=== PATIENT | female | born 1960 | race Caucasian/White ===

== ENCOUNTER → 2017-12-03 16:41 | Outpatient (CLI) | payer OTHER, SELFPAY ==
[2017-12-03 17:27] LABS: Add Manual Diff / Slide Review NO; Basophils Percent Auto 0.9 % (0-2); Eosinophils Percent Auto 0.8 % (2-4); Hemoglobin 12.4 g/dL (12.0-16.0); Lymphocytes Percent Auto 27.1 % (25-40); Mean Corpuscular HGB Conc 33.5 % (30-36); Mean Corpuscular Hemoglobin 30.2 PG (26-34); Mean Corpuscular Volume 90.2 fL (80-100); Monocytes Percent Auto 6.2 % (3-14); Neutrophils Absolute Auto 5300 /uL (3000-5900); Platelet Count 345 X10^3/uL (150-400); Red Cell Distribution Width 14.5 % (11.6-14.8); White Blood Cell Count 8.1 X10^3/uL (4.5-11.0)
[2017-12-03 17:49] LABS: Alanine Aminotransferase 23 IU/L (9-52); Albumin 4.5 g/dL (3.5-5.0); Albumin Globulin Ratio 1.4 (1.0-2.8); Alkaline Phosphatase 68 U/L (38-126); Aspartate Aminotransferase 18 IU/L (14-36); BUN Creatinine Ratio 31.7 (6-22); Bilirubin Total 0.4 mg/dL (0.2-1.3); Blood Urea Nitrogen 19 mg/dL (7-17); C-Reactive Protein Quant 2.1 mg/dL (<1.0); Calcium 9.8 mg/dL (8.4-10.2); Carbon Dioxide 24 mmol/L (22-32); Chloride 98 mmol/L (98-107); Cholesterol 194 mg/dL (140-199); Estimated Glomerular Filt Rate > 60.0 mL/min (>60); Globulin 3.2 g/dL (1.7-4.1); Glucose 88 mg/dL (70-100); HDL Cholesterol 70 mg/dL (40-60); HEMOLYSIS < 15 (0-50); LDL Cholesterol Calculated 107 mg/dL (<100); Potassium 4.7 mmol/L (3.4-5.1); Sodium 137 mmol/L (137-145); Total Protein 7.7 g/dL (6.3-8.2); Triglycerides 84 mg/dL (35-150)
[2017-12-03 17:51] LABS: Rheumatoid Factor < 8.6 IU/mL (<12.0)
[2017-12-03 18:01] LABS: Erythrocyte Sedimentation Rate 45 MM/HR (0-20)
[2017-12-03 18:18] LABS: TSH w/ Reflex to FT4 6.96 uIU/mL (0.47-4.68)
[2017-12-03 20:47] LABS: Free T4, Direct Thyroxine 1.25 ng/dL (0.78-2.19)
[2017-12-05 20:42] LABS: ANA Screen NEGATIVE (Negative); DNA Antibody Crithidia IFA NEGATIVE (Negative); Rheumatoid Factor <14 IU/mL; Sjogren Antiboday SS-A <1.0 NEG AI (<1.0 NEGATIVE); Sjogren Antiboday SS-B <1.0 NEG AI (<1.0 NEGATIVE); Sm Antibody <1.0 NEG AI (<1.0 NEGATIVE); Sm/RNP Antibody <1.0 NEG AI (<1.0 NEGATIVE)
[2017-12-06 12:03] LABS: CCP Antibody (IgG) < 16 Units (< 20)
== END ==
PROVIDERS: Family Provider Family Medicine; PCP Family Medicine; Visit Provider Family Medicine
DX: M35.3 Polymyalgia rheumatica (principal)
CPT/HCPCS: 36415; 80053; 80061; 83516; 84439; 84443; 85025; 85651; 86038; 86140; 86430

== ENCOUNTER → 2018-12-03 09:11 | Outpatient (CLI) | payer OTHER, SELFPAY ==
[2018-12-03 10:25] LABS: TSH w/ Reflex to FT4 5.86 uIU/mL (0.47-4.68)
[2018-12-03 10:52] LABS: Free T4, Direct Thyroxine 1.07 ng/dL (0.78-2.19)
== END ==
PROVIDERS: PCP Family Medicine; Visit Provider Family Medicine
DX: E03.9 Hypothyroidism, unspecified (principal)
CPT/HCPCS: 36415; 84439; 84443

== ENCOUNTER → 2021-04-28 09:59 | Outpatient (CLI) | payer OTHER, SELFPAY ==
[2021-04-28 11:02] LABS: Add Manual Diff / Slide Review NO; Basophils Absolute Auto 0 /uL (0-100); Basophils Percent Auto 0.5 % (0-2); Eosinophils Absolute Auto 100 /uL (0-450); Eosinophils Percent Auto 1.8 % (2-4); Hemoglobin 13.2 g/dL (12.0-16.0); Lymphocytes Absolute Auto 1500 /uL (1100-4500); Lymphocytes Percent Auto 27.7 % (25-40); Mean Corpuscular HGB Conc 33.9 % (30-36); Mean Corpuscular Hemoglobin 30.5 PG (26-34); Monocytes Absolute Auto 400 /uL (0-900); Monocytes Percent Auto 7.5 % (3-14); Neutrophils Absolute Auto 3500 /uL (1500-7000); Neutrophils Percent Auto 62.5 % (50-75); Platelet Count 267 X10^3/uL (150-400); Red Blood Cell Count 4.34 X10^6/uL (4.0-5.2); White Blood Cell Count 5.5 X10^3/uL (4.5-11.0)
[2021-04-28 11:26] LABS: Alanine Aminotransferase 21 IU/L (<35); Albumin 4.2 g/dL (3.5-5.0); Albumin Globulin Ratio 1.4 (1.0-2.8); Alkaline Phosphatase 76 U/L (38-126); Aspartate Aminotransferase 25 IU/L (14-36); BUN Creatinine Ratio 26.9 (6-22); Bilirubin Total 0.5 mg/dL (0.2-1.3); Blood Urea Nitrogen 18 mg/dL (7-17); C-Reactive Protein Quant < 0.5 mg/dL (<1.0); Calcium 9.6 mg/dL (8.4-10.2); Carbon Dioxide 27 mmol/L (22-32); Chloride 104 mmol/L (98-107); Estimated Glomerular Filt Rate > 60.0 mL/min (>60); Glucose 99 mg/dL (80-110); HEMOLYSIS < 15 (0-50); Potassium 4.4 mmol/L (3.4-5.1); Sodium 139 mmol/L (137-145); Total Protein 7.2 g/dL (6.3-8.2)
[2021-04-28 11:54] LABS: Erythrocyte Sedimentation Rate 13 MM/HR (0-20)
[2021-04-28 11:55] LABS: TSH w/ Reflex to FT4 2.84 uIU/mL (0.47-4.68)
== END ==
PROVIDERS: PCP Family Medicine; Referring Provider Physician Assistant; Visit Provider Physician Assistant
DX: M35.3 Polymyalgia rheumatica (principal); R79.89 Other specified abnormal findings of blood chemistry; M62.81 Muscle weakness (generalized)
CPT/HCPCS: 36415; 80053; 84443; 85025; 85651; 86140

== ENCOUNTER 2021-12-12 11:00 | Outpatient (RCR) | payer OTHER, SELFPAY ==
--- NOTE | 2021-10-06 18:11 | PT.OIE ---
Current Diagnoses Muscle weakness (generalized) (10/06/21) Other malaise (10/06/21) Visit Care Team Role Provider Type Soren Dickens MD Family Provider Physician Primary Care Provider Referring Provider Specialty: Family Practice Address: [address] [place] [address], [id number] Email: [email or web address] Suze Grimaldo PA-C Attending Provider Advanced Regional Service Manager Specialty: Medical Address: [address], [address] Email: [email or web address] Physical Therapy Initial Evaluation PT-OP-A Visit Information Start: 10/04/21 08:01 Freq: Status: Active Protocol: Document 10/06/21 09:45 SAK (Rec: 10/06/21 10:29 SAK [id number]) Out-Patient Physical Therapy Visit Information Visit Information Visit Type Initial Evaluation Visit Start Time 09:45 Visit Stop Time 10:25 Total Visit Minutes 40 Visit Number 1 Evaluation Information Evaluation Date 10/06/21 PT-OP-B Current Condition Start: 10/04/21 08:01 Freq: Status: Active Protocol: Document 10/06/21 09:45 SAK (Rec: 10/06/21 10:29 SAK [id number]) Current Condition History of Current Condition Onset Date 2011 Current Complaints weakness and pain History of Current Condition History of polymyalgia rheumatica, has been on/off Prednisone for 10+ years. Recent worseining bilateral shoulders and upper arms and states that is usually the beginning of a major flare up. Not a good candidate for Prednisone because of side effects doesn't want to take anymore. Sees a GP, has never seen a manager club. Prior aquatic PT for left TKA. Hasn't been able to go to the pool due to Covid and [place] in 4 story home to go through on and off for 1 year. and reports weight gain and increase in pain. 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 Has fallen a couple times feel on tailbone. right knee pain, catches Prior Treatments and Tests Prednisone Land-based PT from Ayesha Smith, PT. Dietary changes Future Testing and Treatments Planned Consider manager club Prior Functional Status Baseline Function- ADL's Independent Baseline Function- Mobility Independent Baseline Function- Gait independent with minimal pain Baseline Function- Work/School unable due to pain Personal Factors Other Personal Factors That May Effect uncertain nature of disease Therapy/Recovery process PT-OP-C Subjective Start: 10/04/21 08:01 Freq: Status: Active Protocol: Document 10/06/21 09:45 SAK (Rec: 10/06/21 18:08 [facility] [id number]) OP-PT Pain Assessment Pain Assessment Grid Paper Pain Assessment Grid Completed Yes Location kailash upper arms, kailash hands, kailash thighs, kailash knees Intensity 8 Scale Used Numeric (0 - 10) Frequency Frequent Pain Behaviors Pain Behaviors Guarding,Wincing PT-OP-G Mobility & Gait Start: 10/04/21 08:01 Freq: Status: Active Protocol: Document 10/06/21 09:45 SAK (Rec: 10/06/21 18:08 [facility] [id number]) OP Gait Assessment Gait Gait Assistance Required: Independent Assistive Devices Assistive Device None Gait Deviations General Gait Pattern Antalgic PT-OP-K Range of Motion Start: 10/04/21 08:01 Freq: Status: Active Protocol: Document 10/06/21 09:45 SAK (Rec: 10/06/21 18:08 [facility] [id number]) Shoulder Goniometric Range of Motion Shoulder kailash Shoulder ROM WFL Yes Shoulder ROM Limitations Shoulder ROM Limitations Pain Comments WFL but painful Hip Goniometric Range of Motion Hip kailash Testing Position Supine Flexion w/Knee Flexed 110 Straight Leg Raise 70 Extension 0 Abduction 25 Internal Rotation 10 External Rotation 45 Knee Goniometric Range of Motion Knee kailash Knee ROM WFL Yes Knee ROM Limitations Comments WFL but painful PT-OP-M Strength Start: 10/04/21 08:01 Freq: Status: Active Protocol: Document 10/06/21 09:45 SAK (Rec: 10/06/21 18:08 [facility] [id number]) Shoulder Strength Shoulder Manual Muscle Testing kailash Flexion 3+ Fair+ Extension 3+ Fair+ Abduction (C5) 3+ Fair+ Adduction 3+ Fair+ External Rotation 3+ Fair+ Internal Rotation 3+ Fair+ Comments limited by pain Elbow/Forearm Strength Elbow and Forearm Manual Muscle Testing kailash Flexion (C6) 4 Good Extension (C7) 4 Good Comments painful Hip Strength Hip Manual Muscle Testing kailash Flexion (L2) 3+ Fair+ Extension (S1) 3- Fair- Abduction 3+ Fair+ External Rotation 3+ Fair+ Internal Rotation 3+ Fair+ Comments painful Knee Strength Knee Manual Muscle Testing kailash Flexion (S2) 4 Good Extension (L3) 4 Good Comments painful PT-OP-Q Treatments Start: 10/04/21 08:01 Freq: Status: Active Protocol: Document 10/06/21 09:45 [facility] (Rec: 10/06/21 18:08 [facility] [id number]) Self-Care/Home Management Treatment Education Patient Education Home Exercise Program Other Education written HEP issued for TrA activation, gluteal sets, bridging, sit to stand PT-OP-T Assessment and Plan Start: 10/04/21 08:01 Freq: Status: Active Protocol: Document 10/06/21 09:45 [facility] (Rec: 10/06/21 18:08 [facility] [id number]) Physical Therapy Assessment Rehab Potential Rehabilitation Potential Good Evaluation Complexity Number of Personal Factors/Comorbidities 1-2 Number of Body Systems Impaired 3 Clinical Presentation at Evaluation Evolving Impairments Impairments Activity Tolerance,Pain, Strength Goals Two Impairment pain bilateral UE's and LE's with decreased functional strength Impairment patient unable to reach overhead due to bilateral shoulder pain requires use of UE's to move from sit to stand Short Term Goal (STG) Patient to report 25% reduction in pain with usual functional activities STG Duration 11/06/21 [facility] Goal (LTG) Patient will be able to move from sit to stand without requiring use of hands Patient will be able to reach overhead to wash hair and reach objects in cupboards with reported 50% decrease in pain LTG Duration 12/05/21 One Impairment Not able to tolerate exercise progarm Short Term Goal (STG) instruct in progressive aquatic exericse program STG Duration 11/06/21 House Manager Goal (LTG) Patient to be independent and compliant with aquatic exercise program for the purposes of shelter fitness and pain management LTG Duration 12/05/21 Assessment Summary Assessment Patient presents to PT with function-limiting pain throughout her UE's and LE's related largely to diagnosis of polymyalgia rheumatica which is unpredictable in nature but has resulted in progressive decline in patient activity level, strength, and tolerance for activities in the home. Feel she will benefit the most from aquatic therapy for buoyancy supported therapeutic exercises for long-term fitness and pain management. Physical Therapy Plan Frequency and Duration Frequency of Treatment 2x/Week Duration of Treatment 8 weeks Plan of Care Start Date 10/06/21 Plan of Care End Date 12/05/21 Therapeutic Interventions Therapeutic Interventions Aquatic Therapy,Home Exercise Program,Patient/Caregiver Education,Self-Care/Home Management Next Visit Focus/Plan Next Note Type Treatment Note Next Visit Plan Initiate aquatic therapy to address above goals.
--- NOTE | 2021-10-06 18:12 | PT.OPPOC ---
Physical, Occupational & Speech Therapy At [facility] Current Diagnoses Muscle weakness (generalized) (10/06/21) Other malaise (10/06/21) Visit Care Team Role Provider Type Soren Dickens MD Family Provider Physician Primary Care Provider Referring Provider Specialty: Family Practice Address: [address] [place] [address], [address] Email: [email or web address] Suze Grimaldo PA-C Attending Provider Advanced Edge Gluer Specialty: Medical Address: [facility], [address] [place], [address] Email: [email or web address] Plan Of Care PT-OP-T Assessment and Plan Start: 10/04/21 08:01 Freq: Status: Active Protocol: Document 10/06/21 09:45 LISA (Rec: 10/06/21 18:08 [facility] [id number]) Physical Therapy Assessment Rehab Potential Rehabilitation Potential Good Evaluation Complexity Number of Personal Factors/Comorbidities 1-2 Number of Body Systems Impaired 3 Clinical Presentation at Evaluation Evolving Impairments Impairments Activity Tolerance,Pain, Strength Goals Two Impairment pain bilateral UE's and LE's with decreased functional strength Impairment patient unable to reach overhead due to bilateral shoulder pain requires use of UE's to move from sit to stand Short Term Goal (STG) Patient to report 25% reduction in pain with usual functional activities STG Duration 11/06/21 [employer] Installer Goal (LTG) Patient will be able to move from sit to stand without requiring use of hands Patient will be able to reach overhead to wash hair and reach objects in cupboards with reported 50% decrease in pain LTG Duration 12/05/21 One Impairment Not able to tolerate exercise progarm Short Term Goal (STG) instruct in progressive aquatic exericse program STG Duration 11/06/21 [employer] Installer Goal (LTG) Patient to be independent and compliant with aquatic exercise program for the purposes of jail fitness and pain management LTG Duration 12/05/21 Assessment Summary Assessment Patient presents to PT with function-limiting pain throughout her UE's and LE's related largely to diagnosis of polymyalgia rheumatica which is unpredictable in nature but has resulted in progressive decline in patient activity level, strength, and tolerance for activities in the home. Feel she will benefit the most from aquatic therapy for buoyancy supported therapeutic exercises for long-term fitness and pain management. Physical Therapy Plan Frequency and Duration Frequency of Treatment 2x/Week Duration of Treatment 8 weeks Plan of Care Start Date 10/06/21 Plan of Care End Date 12/05/21 Therapeutic Interventions Therapeutic Interventions Aquatic Therapy,Home Exercise Program,Patient/Caregiver Education,Self-Care/Home Management Next Visit Focus/Plan Next Note Type Treatment Note Next Visit Plan Initiate aquatic therapy to address above goals. Plan of Care Dates Plan of Care Start Date 10/06/21 Plan of Care End Date 12/05/21 Electronically Signed by: Sarah Nelson, PT 10/06/21 [id number] If you are in agreement with this Plan of Care, please return a signed and dated copy. I have reviewed this Plan of Care and certify that the skilled therapy services above are required to meet the patient?s needs. Physician Signature Date Printed Name and Credentials Clinical Instructor Signature Printed Name and Credentials
--- NOTE | 2021-10-19 17:37 | PT.OTN ---
Current Diagnoses Muscle weakness (generalized) (10/19/21) Other malaise (10/19/21) Physical Therapy Treatment Note PT-OP-A Visit Information Start: 10/04/21 08:01 Freq: Status: Active Protocol: Document 10/19/21 17:31 SAK (Rec: 10/19/21 17:37 [facility] [id number]) Out-Patient Physical Therapy Visit Information Visit Information Visit Type Aquatic Treatment Note Visit Start Time 10:15 Visit Stop Time 11:00 Total Visit Minutes 45 Visit Number 2 Evaluation Information Evaluation Date 10/06/21 PT-OP-B Current Condition Start: 10/04/21 08:01 Freq: Status: Active Protocol: Document 10/19/21 17:31 SAK (Rec: 10/19/21 17:37 [facility] [id number]) Current Condition History of Current Condition Onset Date 2011 Current Complaints weakness and pain History of Current Condition History of polymyalgia rheumatica, has been on/off Prednisone for 10+ years. Recent worseining bilateral shoulders and upper arms and states that is usually the beginning of a major flare up. Not a good candidate for Prednisone because of side effects doesn't want to take anymore. Sees a GP, has never seen a rib cloth knitter. Prior aquatic PT for left TKA. Hasn't been able to go to the pool due to Covid and [place] in 4 story home to go through on and off for 1 year. and reports weight gain and increase in pain. 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 Has fallen a couple times feel on tailbone. right knee pain, catches Prior Treatments and Tests Prednisone Land-based PT from Ayesha Smith PT. Dietary changes Future Testing and Treatments Planned Consider rib cloth knitter PT-OP-C Subjective Start: 10/04/21 08:01 Freq: Status: Active Protocol: Document 10/19/21 17:31 SAK (Rec: 10/19/21 17:37 [facility] [id number]) OP-PT Subjective Patient Comments Patient Comments Excited to get back to aquatic exercises after losing so much physical ground PT-OP-G Mobility & Gait Start: 10/04/21 08:01 Freq: Status: Active Protocol: Document 10/06/21 09:45 SAK (Rec: 10/06/21 18:08 [facility] [id number]) OP Gait Assessment Gait Gait Assistance Required: Independent Assistive Devices Assistive Device None Gait Deviations General Gait Pattern Antalgic PT-OP-K Range of Motion Start: 10/04/21 08:01 Freq: Status: Active Protocol: Document 10/06/21 09:45 [facility] (Rec: 10/06/21 18:08 [facility] [id number]) Shoulder Goniometric Range of Motion Shoulder kailash Shoulder ROM WFL Yes Shoulder ROM Limitations Shoulder ROM Limitations Pain Comments WFL but painful Hip Goniometric Range of Motion Hip kailash Testing Position Supine Flexion w/Knee Flexed 110 Straight Leg Raise 70 Extension 0 Abduction 25 Internal Rotation 10 External Rotation 45 Knee Goniometric Range of Motion Knee kailash Knee ROM WFL Yes Knee ROM Limitations Comments WFL but painful PT-OP-M Strength Start: 10/04/21 08:01 Freq: Status: Active Protocol: Document 10/06/21 09:45 [facility] (Rec: 10/06/21 18:08 [facility] [id number]) Shoulder Strength Shoulder Manual Muscle Testing kailash Flexion 3+ Fair+ Extension 3+ Fair+ Abduction (C5) 3+ Fair+ Adduction 3+ Fair+ External Rotation 3+ Fair+ Internal Rotation 3+ Fair+ Comments limited by pain Elbow/Forearm Strength Elbow and Forearm Manual Muscle Testing kailash Flexion (C6) 4 Good Extension (C7) 4 Good Comments painful Hip Strength Hip Manual Muscle Testing kailash Flexion (L2) 3+ Fair+ Extension (S1) 3- Fair- Abduction 3+ Fair+ External Rotation 3+ Fair+ Internal Rotation 3+ Fair+ Comments painful Knee Strength Knee Manual Muscle Testing kailash Flexion (S2) 4 Good Extension (L3) 4 Good Comments painful PT-OP-Q Treatments Start: 10/04/21 08:01 Freq: Status: Active Protocol: Document 10/06/21 09:45 [facility] (Rec: 10/06/21 18:08 [facility] [id number]) Self-Care/Home Management Treatment Education Patient Education Home Exercise Program Other Education written HEP issued for TrA activation, gluteal sets, bridging, sit to stand PT-OP-S Aquatic Treatment Start: 10/04/21 08:01 Freq: Status: Active Protocol: Document 10/19/21 17:31 [facility] (Rec: 10/19/21 17:37 [facility] [id number]) Aquatics Treatment Pool Entry/Exit Pool Entry/Exit Method Stairs Assistance Independent Water Walking Marching Water Level Chest Level Level of Assistance Verbal Cues Sideways Water Level Chest Level Level of Assistance Verbal Cues Backwards Water Level Chest Level Level of Assistance Verbal Cues Forwards Water Level Chest Level Level of Assistance Verbal Cues Lower Extremity Exercises knee flex/ext Body Position Standing Water Level Chest Level Reps/Duration 10x circles Body Position Standing Water Level Chest Level Reps/Duration 10x 4-way hip Body Position Standing Water Level Chest Level Reps/Duration 10x Upper Extremity Exercises writst flexor stretch Body Position Standing Water Level Chest Level Reps/Duration 2x30 bicep/tricep Body Position Standing Water Level Chest Level Reps/Duration 10x Comments open hand circles Body Position Standing Water Level Chest Level Reps/Duration 10x flex/ext Water Level Chest Level Reps/Duration 10x hor ab/ad Body Position Standing Water Level Chest Level Reps/Duration 10x [place] Activities [place] Activities Bicycle,Cross Country,Running Other Activities deep water hang spiderman stretch SKTC Equipment wall Aquatic Yoga Other explore movement Chi Comments consider next session PT-OP-T Assessment and Plan Start: 10/04/21 08:01 Freq: Status: Active Protocol: Document 10/19/21 17:31 [facility] (Rec: 10/19/21 17:37 [facility] [id number]) Physical Therapy Assessment Goals Two Impairment pain bilateral UE's and LE's with decreased functional strength Impairment patient unable to reach overhead due to bilateral shoulder pain requires use of UE's to move from sit to stand Short Term Goal (STG) Patient to report 25% reduction in pain with usual functional activities STG Duration 11/06/21 [facility] Goal (LTG) Patient will be able to move from sit to stand without requiring use of hands Patient will be able to reach overhead to wash hair and reach objects in cupboards with reported 50% decrease in pain LTG Duration 12/05/21 One Impairment Not able to tolerate exercise progarm Short Term Goal (STG) instruct in progressive aquatic exericse program STG Duration 11/06/21 [facility]iary Goal (LTG) Patient to be independent and compliant with aquatic exercise program for the purposes of long term care social worker fitness and pain management LTG Duration 12/05/21 Physical Therapy Plan Frequency and Duration Frequency of Treatment 2x/Week Duration of Treatment 8 weeks Plan of Care Start Date 10/06/21 Plan of Care End Date 12/05/21 Therapeutic Interventions Therapeutic Interventions Aquatic Therapy,Home Exercise Program,Patient/Caregiver Education,Self-Care/Home Management Next Visit Focus/Plan Next Note Type Treatment Note Next Visit Plan Assess response to aquatic therapy session and progress as tolerated for gentle strengthening and pain managment.
--- NOTE | 2021-10-26 14:34 | PT.OTN ---
Current Diagnoses Muscle weakness (generalized) (10/26/21) Other malaise (10/26/21) Physical Therapy Treatment Note PT-OP-A Visit Information Start: 10/04/21 08:01 Freq: Status: Active Protocol: Document 10/26/21 14:22 LYNDA (Rec: 10/26/21 14:34 LJ [id number]) Out-Patient Physical Therapy Visit Information Visit Information Visit Type Aquatic Treatment Note Visit Start Time 10:15 Visit Stop Time 11:00 Total Visit Minutes 45 Visit Number 3 Number of BROOM MAKER Visits 1 Evaluation Information Evaluation Date 10/06/21 PT-OP-B Current Condition Start: 10/04/21 08:01 Freq: Status: Active Protocol: Document 10/19/21 17:31 SAK (Rec: 10/19/21 17:37 SAK [id number]) Current Condition History of Current Condition Onset Date 2011 Current Complaints weakness and pain History of Current Condition History of polymyalgia rheumatica, has been on/off Prednisone for 10+ years. Recent worseining bilateral shoulders and upper arms and states that is usually the beginning of a major flare up. Not a good candidate for Prednisone because of side effects doesn't want to take anymore. Sees a GP, has never seen a quantitative researcher. Prior aquatic PT for left TKA. Hasn't been able to go to the pool due to Covid and family [place] in 4 story home to go through on and off for 1 year. and reports weight gain and increase in pain. 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 Has fallen a couple times feel on tailbone. right knee pain, catches Prior Treatments and Tests Prednisone Land-based PT from Ayesha Smith, PT. Dietary changes Future Testing and Treatments Planned Consider quantitative researcher PT-OP-C Subjective Start: 10/04/21 08:01 Freq: Status: Active Protocol: Document 10/26/21 14:22 LYNDA (Rec: 10/26/21 14:34 LJ [id number]) OP-PT Subjective Patient Comments Patient Comments Pt reports she has been able to exercise at the pool several times this week. PT-OP-G Mobility & Gait Start: 10/04/21 08:01 Freq: Status: Active Protocol: Document 10/06/21 09:45 SAK (Rec: 10/06/21 18:08 SAK [id number]) OP Gait Assessment Gait Gait Assistance Required: Independent Assistive Devices Assistive Device None Gait Deviations General Gait Pattern Antalgic PT-OP-K Range of Motion Start: 10/04/21 08:01 Freq: Status: Active Protocol: Document 10/06/21 09:45 [facility] (Rec: 10/06/21 18:08 [facility] [id number]) Shoulder Goniometric Range of Motion Shoulder kailash Shoulder ROM WFL Yes Shoulder ROM Limitations Shoulder ROM Limitations Pain Comments WFL but painful Hip Goniometric Range of Motion Hip kailash Testing Position Supine Flexion w/Knee Flexed 110 Straight Leg Raise 70 Extension 0 Abduction 25 Internal Rotation 10 External Rotation 45 Knee Goniometric Range of Motion Knee kailash Knee ROM WFL Yes Knee ROM Limitations Comments WFL but painful PT-OP-M Strength Start: 10/04/21 08:01 Freq: Status: Active Protocol: Document 10/06/21 09:45 [facility] (Rec: 10/06/21 18:08 [facility] [id number]) Shoulder Strength Shoulder Manual Muscle Testing kailash Flexion 3+ Fair+ Extension 3+ Fair+ Abduction (C5) 3+ Fair+ Adduction 3+ Fair+ External Rotation 3+ Fair+ Internal Rotation 3+ Fair+ Comments limited by pain Elbow/Forearm Strength Elbow and Forearm Manual Muscle Testing kailash Flexion (C6) 4 Good Extension (C7) 4 Good Comments painful Hip Strength Hip Manual Muscle Testing kailash Flexion (L2) 3+ Fair+ Extension (S1) 3- Fair- Abduction 3+ Fair+ External Rotation 3+ Fair+ Internal Rotation 3+ Fair+ Comments painful Knee Strength Knee Manual Muscle Testing kailash Flexion (S2) 4 Good Extension (L3) 4 Good Comments painful PT-OP-Q Treatments Start: 10/04/21 08:01 Freq: Status: Active Protocol: Document 10/06/21 09:45 [facility] (Rec: 10/06/21 18:08 [facility] [id number]) Self-Care/Home Management Treatment Education Patient Education Home Exercise Program Other Education written HEP issued for TrA activation, gluteal sets, bridging, sit to stand PT-OP-S Aquatic Treatment Start: 10/04/21 08:01 Freq: Status: Active Protocol: Document 10/26/21 14:22 LYNDA (Rec: 10/26/21 14:34 LJ [id number]) Aquatics Treatment Pool Entry/Exit Pool Entry/Exit Method Stairs Assistance Independent Water Walking Marching Water Level Chest Level Level of Assistance Verbal Cues Sideways Water Level Chest Level Level of Assistance Verbal Cues Backwards Water Level Chest Level Level of Assistance Verbal Cues Forwards Water Level Chest Level Level of Assistance Verbal Cues Lower Extremity Exercises hip extension Body Position Standing Equipment Ankle Floats Reps/Duration 10x knee flex/ext Body Position Standing Water Level Chest Level Equipment Ankle Floats Reps/Duration 10x circles Body Position Standing Water Level Chest Level Reps/Duration 10x 4-way hip Body Position Standing Water Level Chest Level Reps/Duration 10x Upper Extremity Exercises writst flexor stretch Body Position Standing Water Level Chest Level Reps/Duration 2x30 bicep/tricep Body Position Standing Water Level Chest Level Reps/Duration 10x Comments open hand circles Body Position Standing Water Level Chest Level Reps/Duration 10x flex/ext Water Level Chest Level Reps/Duration 10x hor ab/ad Body Position Standing Water Level Chest Level Reps/Duration 10x Spinal Exercises spinal rotation Details back against wall Body Position Sitting Water Level Neck Level Reps/Duration 10x UEs in scaption [place] Activities [place] Activities Bicycle,Bicycle Backwards, Cross Country,Running,Hip Abduction/Adduction Other Activities prone extension Equipment belt, BBs Aquatic Yoga Other explore movement Chi Comments 4 min w/o weight shifting PT-OP-T Assessment and Plan Start: 10/04/21 08:01 Freq: Status: Active Protocol: Document 10/26/21 14:22 LYNDA (Rec: 10/26/21 14:34 LYNDA [id number]) Physical Therapy Assessment Rehab Potential Rehabilitation Potential Good Evaluation Complexity Number of Personal Factors/Comorbidities 1-2 Number of Body Systems Impaired 3 Clinical Presentation at Evaluation Evolving Impairments Impairments Activity Tolerance,Pain, Strength Goals Two Impairment pain bilateral UE's and LE's with decreased functional strength Impairment patient unable to reach overhead due to bilateral shoulder pain requires use of UE's to move from sit to stand Short Term Goal (STG) Patient to report 25% reduction in pain with usual functional activities STG Duration 11/06/21 Machine Joint Cutter Goal (LTG) Patient will be able to move from sit to stand without requiring use of hands Patient will be able to reach overhead to wash hair and reach objects in cupboards with reported 50% decrease in pain LTG Duration 12/05/21 One Impairment Not able to tolerate exercise progarm Short Term Goal (STG) instruct in progressive aquatic exericse program STG Duration 11/06/21 Retirement Goal (LTG) Patient to be independent and compliant with aquatic exercise program for the purposes of home hospice rn fitness and pain management LTG Duration 12/05/21 Assessment Summary Assessment Pt tolerated exercises without c/o pain or fatigue. Was advised to keep exercises to a gentle level and gradually build up. She demonstrated good core control and balance during all activities with cues occasionally for vertical alignment in deep water. Physical Therapy Plan Frequency and Duration Frequency of Treatment 2x/Week Duration of Treatment 8 weeks Plan of Care Start Date 10/06/21 Plan of Care End Date 12/05/21 Therapeutic Interventions Therapeutic Interventions Aquatic Therapy,Home Exercise Program,Patient/Caregiver Education,Self-Care/Home Management Next Visit Focus/Plan Next Note Type Treatment Note Next Visit Plan Progress as tolerated for gentle strengthening and pain managment.
--- NOTE | 2021-11-02 16:21 | PT.OTN ---
Addendum entered and electronically signed by Sarah Nelson PT 11/08/21 16:17: Late entry for patient session 10/31/21. Original Note: Current Diagnoses Muscle weakness (generalized) (10/31/21) Other malaise (10/31/21) Physical Therapy Treatment Note PT-OP-A Visit Information Start: 10/04/21 08:01 Freq: Status: Active Protocol: Document 11/02/21 16:13 SAK (Rec: 11/02/21 16:21 [facility] [id number]) Out-Patient Physical Therapy Visit Information Visit Information Visit Type Aquatic Treatment Note Visit Start Time 12:30 Visit Stop Time 13:15 Total Visit Minutes 45 Visit Number 4 Number of OFFICE CLERK ASSISTANT Visits 0 Evaluation Information Evaluation Date 10/06/21 PT-OP-B Current Condition Start: 10/04/21 08:01 Freq: Status: Active Protocol: Document 10/19/21 17:31 SAK (Rec: 10/19/21 17:37 SAK [id number]) Current Condition History of Current Condition Onset Date 2011 Current Complaints weakness and pain History of Current Condition History of polymyalgia rheumatica, has been on/off Prednisone for 10+ years. Recent worseining bilateral shoulders and upper arms and states that is usually the beginning of a major flare up. Not a good candidate for Prednisone because of side effects doesn't want to take anymore. Sees a GP, has never seen a shipping inspector. Prior aquatic PT for left TKA. Hasn't been able to go to the pool due to Covid and family with being out [place] in 4 story home to go through on and off for 1 year. and reports weight gain and increase in pain. 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 Has fallen a couple times feel on tailbone. right knee pain, catches Prior Treatments and Tests Prednisone Land-based PT from Ayesha Smith, PT. Dietary changes Future Testing and Treatments Planned Consider shipping inspector PT-OP-C Subjective Start: 10/04/21 08:01 Freq: Status: Active Protocol: Document 11/02/21 16:13 SAK (Rec: 11/02/21 16:21 SAK [id number]) OP-PT Subjective Patient Comments Patient Comments Feeling some soreness but not increase in pain after aquatic exercises. PT-OP-G Mobility & Gait Start: 10/04/21 08:01 Freq: Status: Active Protocol: Document 10/06/21 09:45 [facility] (Rec: 10/06/21 18:08 [facility] [id number]) OP Gait Assessment Gait Gait Assistance Required: Independent Assistive Devices Assistive Device None Gait Deviations General Gait Pattern Antalgic PT-OP-K Range of Motion Start: 10/04/21 08:01 Freq: Status: Active Protocol: Document 10/06/21 09:45 [facility] (Rec: 10/06/21 18:08 [facility] [id number]) Shoulder Goniometric Range of Motion Shoulder kailash Shoulder ROM WFL Yes Shoulder ROM Limitations Shoulder ROM Limitations Pain Comments WFL but painful Hip Goniometric Range of Motion Hip kailash Testing Position Supine Flexion w/Knee Flexed 110 Straight Leg Raise 70 Extension 0 Abduction 25 Internal Rotation 10 External Rotation 45 Knee Goniometric Range of Motion Knee kailash Knee ROM WFL Yes Knee ROM Limitations Comments WFL but painful PT-OP-M Strength Start: 10/04/21 08:01 Freq: Status: Active Protocol: Document 10/06/21 09:45 [facility] (Rec: 10/06/21 18:08 [facility] [id number]) Shoulder Strength Shoulder Manual Muscle Testing kailash Flexion 3+ Fair+ Extension 3+ Fair+ Abduction (C5) 3+ Fair+ Adduction 3+ Fair+ External Rotation 3+ Fair+ Internal Rotation 3+ Fair+ Comments limited by pain Elbow/Forearm Strength Elbow and Forearm Manual Muscle Testing kailash Flexion (C6) 4 Good Extension (C7) 4 Good Comments painful Hip Strength Hip Manual Muscle Testing kailash Flexion (L2) 3+ Fair+ Extension (S1) 3- Fair- Abduction 3+ Fair+ External Rotation 3+ Fair+ Internal Rotation 3+ Fair+ Comments painful Knee Strength Knee Manual Muscle Testing kailash Flexion (S2) 4 Good Extension (L3) 4 Good Comments painful PT-OP-Q Treatments Start: 10/04/21 08:01 Freq: Status: Active Protocol: Document 10/06/21 09:45 [facility] (Rec: 10/06/21 18:08 [facility] [id number]) Self-Care/Home Management Treatment Education Patient Education Home Exercise Program Other Education written HEP issued for TrA activation, gluteal sets, bridging, sit to stand PT-OP-S Aquatic Treatment Start: 10/04/21 08:01 Freq: Status: Active Protocol: Document 11/02/21 16:13 [facility] (Rec: 11/02/21 16:21 [facility] [id number]) Aquatics Treatment Pool Entry/Exit Pool Entry/Exit Method Stairs Assistance Independent Water Walking Marching Water Level Chest Level Walking Equipment Ankle Floats Level of Assistance Verbal Cues Sideways Water Level Chest Level Walking Equipment Ankle Floats Level of Assistance Verbal Cues Backwards Water Level Chest Level Walking Equipment Ankle Floats Level of Assistance Verbal Cues Forwards Water Level Chest Level Walking Equipment Ankle Floats Level of Assistance Verbal Cues Lower Extremity Exercises hip extension Body Position Standing Equipment Ankle Floats Reps/Duration 10x knee flex/ext Body Position Standing Water Level Chest Level Equipment Ankle Floats Reps/Duration 10x circles Body Position Standing Water Level Chest Level Reps/Duration 10x 4-way hip Body Position Standing Water Level Chest Level Reps/Duration 10x Upper Extremity Exercises flex/ext Water Level Chest Level Reps/Duration 10x Comments cues fsor core stab hor ab/ad Details kailash and unil Body Position Standing Water Level Chest Level Reps/Duration 10x Comments cues for core stab [place] Activities [place] Activities Bicycle,Bicycle Backwards, Cross Country,Running,Hip Abduction/Adduction Other Activities prone extension Equipment belt, BBs PT-OP-T Assessment and Plan Start: 10/04/21 08:01 Freq: Status: Active Protocol: Document 11/02/21 16:13 [facility] (Rec: 11/02/21 16:21 [facility] [id number]) Physical Therapy Assessment Goals Two Impairment pain bilateral UE's and LE's with decreased functional strength Impairment patient unable to reach overhead due to bilateral shoulder pain requires use of UE's to move from sit to stand Short Term Goal (STG) Patient to report 25% reduction in pain with usual functional activities STG Duration 11/06/21 Product Marketing Manager Goal (LTG) Patient will be able to move from sit to stand without requiring use of hands Patient will be able to reach overhead to wash hair and reach objects in cupboards with reported 50% decrease in pain LTG Duration 12/05/21 One Impairment Not able to tolerate exercise progarm Short Term Goal (STG) instruct in progressive aquatic exericse program STG Duration 11/06/21 Residential Goal (LTG) Patient to be independent and compliant with aquatic exercise program for the purposes of [facility] fitness and pain management LTG Duration 12/05/21 Assessment Summary Assessment Good tolerance for progression of therapeutic aquatic exercises, cues for postural alignment and core stabiliztion. Physical Therapy Plan Frequency and Duration Frequency of Treatment 2x/Week Duration of Treatment 8 weeks Plan of Care Start Date 10/06/21 Plan of Care End Date 12/05/21 Therapeutic Interventions Therapeutic Interventions Aquatic Therapy,Home Exercise Program,Patient/Caregiver Education,Self-Care/Home Management Next Visit Focus/Plan Next Note Type Treatment Note Next Visit Plan Continue to rogress as tolerated for gentle strengthening and pain managment. Consider mild interval training.
--- NOTE | 2021-11-07 15:55 | PT.OTN ---
Current Diagnoses Muscle weakness (generalized) (11/07/21) Other malaise (11/07/21) Physical Therapy Treatment Note PT-OP-A Visit Information Start: 10/04/21 08:01 Freq: Status: Active Protocol: Document 11/07/21 15:07 LYNDA (Rec: 11/07/21 15:55 LJ [id number]) Out-Patient Physical Therapy Visit Information Visit Information Visit Type Aquatic Treatment Note Visit Start Time 12:45 Visit Stop Time 01:15 Total Visit Minutes 30 Visit Number 5 Number of RIFFLER TENDER Visits 1 Evaluation Information Evaluation Date 10/06/21 PT-OP-B Current Condition Start: 10/04/21 08:01 Freq: Status: Active Protocol: Document 10/19/21 17:31 SAK (Rec: 10/19/21 17:37 SAK [id number]) Current Condition History of Current Condition Onset Date 2011 Current Complaints weakness and pain History of Current Condition History of polymyalgia rheumatica, has been on/off Prednisone for 10+ years. Recent worseining bilateral shoulders and upper arms and states that is usually the beginning of a major flare up. Not a good candidate for Prednisone because of side effects doesn't want to take anymore. Sees a GP, has never seen a medical corps officer. Prior aquatic PT for left TKA. Hasn't been able to go to the pool due to Covid and family with being out [place] in [address] [place] home to go through on and off for 1 year. and reports weight gain and increase in pain. 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 Has fallen a couple times feel on tailbone. right knee pain, catches Prior Treatments and Tests Prednisone Land-based PT from Ayesha Smith, PT. Dietary changes Future Testing and Treatments Planned Consider medical corps officer PT-OP-C Subjective Start: 10/04/21 08:01 Freq: Status: Active Protocol: Document 11/07/21 15:07 LYNDA (Rec: 11/07/21 15:55 LYNDA [id number]) OP-PT Subjective Patient Comments Patient Comments Pt states she is experiencing a flare-up causing pain in her shoulders. She doesn't think she has been overdoing it when she exercises at the pool though. States it could possibly be the warm weather bringing causing it. PT-OP-G Mobility & Gait Start: 10/04/21 08:01 Freq: Status: Active Protocol: Document 10/06/21 09:45 SAK (Rec: 10/06/21 18:08 [facility] [id number]) OP Gait Assessment Gait Gait Assistance Required: Independent Assistive Devices Assistive Device None Gait Deviations General Gait Pattern Antalgic PT-OP-K Range of Motion Start: 10/04/21 08:01 Freq: Status: Active Protocol: Document 10/06/21 09:45 SAK (Rec: 10/06/21 18:08 [facility] [id number]) Shoulder Goniometric Range of Motion Shoulder kailash Shoulder ROM WFL Yes Shoulder ROM Limitations Shoulder ROM Limitations Pain Comments WFL but painful Hip Goniometric Range of Motion Hip kailash Testing Position Supine Flexion w/Knee Flexed 110 Straight Leg Raise 70 Extension 0 Abduction 25 Internal Rotation 10 External Rotation 45 Knee Goniometric Range of Motion Knee kailash Knee ROM WFL Yes Knee ROM Limitations Comments WFL but painful PT-OP-M Strength Start: 10/04/21 08:01 Freq: Status: Active Protocol: Document 10/06/21 09:45 [facility] (Rec: 10/06/21 18:08 [facility] [id number]) Shoulder Strength Shoulder Manual Muscle Testing kailash Flexion 3+ Fair+ Extension 3+ Fair+ Abduction (C5) 3+ Fair+ Adduction 3+ Fair+ External Rotation 3+ Fair+ Internal Rotation 3+ Fair+ Comments limited by pain Elbow/Forearm Strength Elbow and Forearm Manual Muscle Testing kailash Flexion (C6) 4 Good Extension (C7) 4 Good Comments painful Hip Strength Hip Manual Muscle Testing kailash Flexion (L2) 3+ Fair+ Extension (S1) 3- Fair- Abduction 3+ Fair+ External Rotation 3+ Fair+ Internal Rotation 3+ Fair+ Comments painful Knee Strength Knee Manual Muscle Testing kailash Flexion (S2) 4 Good Extension (L3) 4 Good Comments painful PT-OP-Q Treatments Start: 10/04/21 08:01 Freq: Status: Active Protocol: Document 10/06/21 09:45 SAK (Rec: 10/06/21 18:08 [facility] [id number]) Self-Care/Home Management Treatment Education Patient Education Home Exercise Program Other Education written HEP issued for TrA activation, gluteal sets, bridging, sit to stand PT-OP-S Aquatic Treatment Start: 10/04/21 08:01 Freq: Status: Active Protocol: Document 11/07/21 15:07 LYNDA (Rec: 11/07/21 15:55 LYNDA [id number]) Aquatics Treatment Pool Entry/Exit Pool Entry/Exit Method Stairs Assistance Independent Chi Chi Duration (Minutes) 15 Comments Including weight transfer movement, breath control and timing with movement of UEs, maintaining stable YVETTE and neutral spine with weight transfer in saggital plane Manual Techniques Aquatic Massage Gentle AquaStretch including foot, ankle, ITB releases PT-OP-T Assessment and Plan Start: 10/04/21 08:01 Freq: Status: Active Protocol: Document 11/07/21 15:07 LYNDA (Rec: 11/07/21 15:55 LYNDA [id number]) Physical Therapy Assessment Rehab Potential Rehabilitation Potential Good Evaluation Complexity Number of Personal Factors/Comorbidities 1-2 Number of Body Systems Impaired 3 Clinical Presentation at Evaluation Evolving Goals Two Impairment pain bilateral UE's and LE's with decreased functional strength Impairment patient unable to reach overhead due to bilateral shoulder pain requires use of UE's to move from sit to stand Short Term Goal (STG) Patient to report 25% reduction in pain with usual functional activities STG Duration 11/06/21 Long-Term Goal (LTG) Patient will be able to move from sit to stand without requiring use of hands Patient will be able to reach overhead to wash hair and reach objects in cupboards with reported 50% decrease in pain LTG Duration 12/05/21 One Impairment Not able to tolerate exercise progarm Short Term Goal (STG) instruct in progressive aquatic exericse program STG Duration 11/06/21 Long-Term Goal (LTG) Patient to be independent and compliant with aquatic exercise program for the purposes of [facility] fitness and pain management LTG Duration 12/05/21 Assessment Summary Assessment Pt experienced balance challenges with Chi particularly with weight shifting so instructed to maintain contact with the pool bottom with both LEs and focus on weight shifting with neutral spine rather than flexing spine and using UEs to bring body back to standing position from weight transfer to rear. Pt did not have any restrictions or trigger points with AquaStretch but stated it felt good. Physical Therapy Plan Frequency and Duration Frequency of Treatment 2x/Week Duration of Treatment 8 weeks Plan of Care Start Date 10/06/21 Plan of Care End Date 12/05/21 Therapeutic Interventions Therapeutic Interventions Aquatic Therapy,Home Exercise Program,Patient/Caregiver Education,Self-Care/Home Management Next Visit Focus/Plan Next Note Type Treatment Note Next Visit Plan Continue to progress as tolerated for gentle strengthening and pain managment. Consider mild interval training. Advance AquaStretch to include hip release as well as foot, ankle , ITB.
--- NOTE | 2021-11-30 14:41 | PT.OTN ---
Current Diagnoses Muscle weakness (generalized) (11/30/21) Other malaise (11/30/21) Physical Therapy Treatment Note PT-OP-A Visit Information Start: 10/04/21 08:01 Freq: Status: Active Protocol: Document 11/30/21 14:27 [facility] (Rec: 11/30/21 14:41 [facility] [id number]) Out-Patient Physical Therapy Visit Information Visit Information Visit Type Aquatic Treatment Note Visit Start Time 11:10 Visit Stop Time 12:05 Total Visit Minutes 45 Visit Number 6 Number of CANVAS CUTTER HAND Visits 0 PT-OP-B Current Condition Start: 10/04/21 08:01 Freq: Status: Active Protocol: Document 10/19/21 17:31 [facility] (Rec: 10/19/21 17:37 [facility] [id number]) Current Condition History of Current Condition Onset Date 2011 Current Complaints weakness and pain History of Current Condition History of polymyalgia rheumatica, has been on/off Prednisone for 10+ years. Recent worseining bilateral shoulders and upper arms and states that is usually the beginning of a major flare up. Not a good candidate for Prednisone because of side effects doesn't want to take anymore. Sees a GP, has never seen a parlor maid. Prior aquatic PT for left TKA. Hasn't been able to go to the pool due to Covid and [place] in 4 story home to go through on and off for 1 year. and reports weight gain and increase in pain. 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 Has fallen a couple times feel on tailbone. right knee pain, catches Prior Treatments and Tests Prednisone Land-based PT from Ayesha Smith, PT. Dietary changes Future Testing and Treatments Planned Consider parlor maid PT-OP-C Subjective Start: 10/04/21 08:01 Freq: Status: Active Protocol: Document 11/30/21 14:27 [facility] (Rec: 11/30/21 14:41 [facility] [id number]) OP-PT Subjective Patient Comments Patient Comments Has been coming to pool 6 days per week between PT and on own, taking one day of rest. Feels better for a few hours then pain has returned by evening. No difference with manual treatment last PT session. Stairs remain most difficult right knee and is unable to get E-bike started using right LE due to weakness and pain, and is unable to coordinate doing with left. Her family gifted her an E- bike but she is having difficulty managing it because of the weight and different function, fell last week. Sees orthopedist for her knee soon. PT-OP-G Mobility & Gait Start: 10/04/21 08:01 Freq: Status: Active Protocol: Document 10/06/21 09:45 [facility] (Rec: 10/06/21 18:08 [facility] [id number]) OP Gait Assessment Gait Gait Assistance Required: Independent Assistive Devices Assistive Device None Gait Deviations General Gait Pattern Antalgic PT-OP-K Range of Motion Start: 10/04/21 08:01 Freq: Status: Active Protocol: Document 10/06/21 09:45 [facility] (Rec: 10/06/21 18:08 [facility] [id number]) Shoulder Goniometric Range of Motion Shoulder kailash Shoulder ROM WFL Yes Shoulder ROM Limitations Shoulder ROM Limitations Pain Comments WFL but painful Hip Goniometric Range of Motion Hip kailash Testing Position Supine Flexion w/Knee Flexed 110 Straight Leg Raise 70 Extension 0 Abduction 25 Internal Rotation 10 External Rotation 45 Knee Goniometric Range of Motion Knee kailash Knee ROM WFL Yes Knee ROM Limitations Comments WFL but painful PT-OP-M Strength Start: 10/04/21 08:01 Freq: Status: Active Protocol: Document 10/06/21 09:45 [facility] (Rec: 10/06/21 18:08 [facility] [id number]) Shoulder Strength Shoulder Manual Muscle Testing kailash Flexion 3+ Fair+ Extension 3+ Fair+ Abduction (C5) 3+ Fair+ Adduction 3+ Fair+ External Rotation 3+ Fair+ Internal Rotation 3+ Fair+ Comments limited by pain Elbow/Forearm Strength Elbow and Forearm Manual Muscle Testing kailash Flexion (C6) 4 Good Extension (C7) 4 Good Comments painful Hip Strength Hip Manual Muscle Testing kailash Flexion (L2) 3+ Fair+ Extension (S1) 3- Fair- Abduction 3+ Fair+ External Rotation 3+ Fair+ Internal Rotation 3+ Fair+ Comments painful Knee Strength Knee Manual Muscle Testing kailash Flexion (S2) 4 Good Extension (L3) 4 Good Comments painful PT-OP-Q Treatments Start: 10/04/21 08:01 Freq: Status: Active Protocol: Document 10/06/21 09:45 [facility] (Rec: 10/06/21 18:08 [facility] [id number]) Self-Care/Home Management Treatment Education Patient Education Home Exercise Program Other Education written HEP issued for TrA activation, gluteal sets, bridging, sit to stand PT-OP-S Aquatic Treatment Start: 10/04/21 08:01 Freq: Status: Active Protocol: Document 11/30/21 14:27 [facility] (Rec: 11/30/21 14:41 [facility] [id number]) Aquatics Treatment Pool Entry/Exit Pool Entry/Exit Method Stairs Assistance Independent Water Walking step-ups Water Level Neck Level Walking Equipment 4 box Level of Assistance Verbal Cues Comments painful chest level [place] March Water Level Chest Level Walking Equipment Ankle Floats Level of Assistance Verbal Cues Marching Water Level Chest Level Walking Equipment Ankle Floats Level of Assistance Verbal Cues Sideways Water Level Chest Level Walking Equipment Ankle Floats Level of Assistance Verbal Cues Backwards Water Level Chest Level Walking Equipment Ankle Floats Level of Assistance Verbal Cues Forwards Water Level Chest Level Walking Equipment Ankle Floats Level of Assistance Verbal Cues Lower Extremity Exercises aquatic bicycle Body Position Sitting Reps/Duration 5 min Comments cues for alignment squats Body Position Standing Water Level Chest Level Reps/Duration 10x Comments cues for long spine, hip hinge hip extension Body Position Standing Equipment Ankle Floats Reps/Duration 10x knee flex/ext Body Position Standing Water Level Chest Level Equipment Ankle Floats Reps/Duration 10x circles Body Position Standing Water Level Chest Level Reps/Duration 10x 4-way hip Body Position Standing Water Level Chest Level Reps/Duration 10x Other bicycle problem solving Details discussed and demonstrated breaking down activities with e-bike Comments standing movement of bike, seated with support at side, etc PT-OP-T Assessment and Plan Start: 10/04/21 08:01 Freq: Status: Active Protocol: Document 11/30/21 14:27 [facility] (Rec: 11/30/21 14:41 [facility] [id number]) Physical Therapy Assessment Assessment Summary Assessment Patient continues to have pain in her right knee, has significant valgus and crepitus lateral knee and subpatellar. Stairs most painful even in water with buoyancy support and she is unable to use right LE to get E-bike started; instructed in breaking down activity into component parts and practicing with physical support. She demonstrated good understanding of exercises with ankle floats which she has ordered for more resistance. She has appointment to see orthopedist for her right knee and anticipate she may need TKA. Good tolerance for progression of ther ex with ankle floats and encouragement of increased speed for increased resistance. Physical Therapy Plan Frequency and Duration Frequency of Treatment 2x/Week Duration of Treatment 8 weeks Plan of Care Start Date 10/06/21 Plan of Care End Date 12/05/21 Therapeutic Interventions Therapeutic Interventions Aquatic Therapy,Home Exercise Program,Patient/Caregiver Education,Self-Care/Home Management Next Visit Focus/Plan Next Note Type Treatment Note Next Visit Plan Add interval training. Possible advance AquaStretch to include hip release as well as foot, ankle, ITB.
--- NOTE | 2021-12-05 11:00 | PT.OTN ---
Current Diagnoses Muscle weakness (generalized) (12/05/21) Other malaise (12/05/21) Physical Therapy Treatment Note PT-OP-A Visit Information Start: 10/04/21 08:01 Freq: Status: Active Protocol: Document 12/05/21 11:00 [facility] (Rec: 12/06/21 15:46 [facility] [id number]) Out-Patient Physical Therapy Visit Information Visit Information Visit Type Aquatic Treatment Note Visit Start Time 11:00 Visit Stop Time 11:45 Total Visit Minutes 45 Visit Number 7 PT-OP-B Current Condition Start: 10/04/21 08:01 Freq: Status: Active Protocol: Document 10/19/21 17:31 [facility] (Rec: 10/19/21 17:37 [facility] [id number]) Current Condition History of Current Condition Onset Date 2011 Current Complaints weakness and pain History of Current Condition History of polymyalgia rheumatica, has been on/off Prednisone for 10+ years. Recent worseining bilateral shoulders and upper arms and states that is usually the beginning of a major flare up. Not a good candidate for Prednisone because of side effects doesn't want to take anymore. Sees a GP, has never seen a asphalt spreader. Prior aquatic PT for left TKA. Hasn't been able to go to the pool due to Covid and family with being out east in 4 story home to go through on and off for 1 year. and reports weight gain and increase in pain. 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 Has fallen a couple times feel on tailbone. right knee pain, catches Prior Treatments and Tests Prednisone Land-based PT from Ayesha Smith, PT. Dietary changes Future Testing and Treatments Planned Consider asphalt spreader PT-OP-C Subjective Start: 10/04/21 08:01 Freq: Status: Active Protocol: Document 11/30/21 14:27 [facility] (Rec: 11/30/21 14:41 [facility] [id number]) OP-PT Subjective Patient Comments Patient Comments Has been coming to pool 6 days per week between PT and on own, taking one day of rest. Feels better for a few hours then pain has returned by evening. No difference with manual treatment last PT session. Stairs remain most difficult right knee and is unable to get E-bike started using right LE due to weakness and pain, and is unable to coordinate doing with left. Her family gifted her an E- bike but she is having difficulty managing it because of the weight and different function, fell last week. Sees orthopedist for her knee soon. PT-OP-G Mobility & Gait Start: 10/04/21 08:01 Freq: Status: Active Protocol: Document 10/06/21 09:45 [facility] (Rec: 10/06/21 18:08 [facility] [id number]) OP Gait Assessment Gait Gait Assistance Required: Independent Assistive Devices Assistive Device None Gait Deviations General Gait Pattern Antalgic PT-OP-K Range of Motion Start: 10/04/21 08:01 Freq: Status: Active Protocol: Document 10/06/21 09:45 [facility] (Rec: 10/06/21 18:08 [facility] [id number]) Shoulder Goniometric Range of Motion Shoulder kailash Shoulder ROM WFL Yes Shoulder ROM Limitations Shoulder ROM Limitations Pain Comments WFL but painful Hip Goniometric Range of Motion Hip kailash Testing Position Supine Flexion w/Knee Flexed 110 Straight Leg Raise 70 Extension 0 Abduction 25 Internal Rotation 10 External Rotation 45 Knee Goniometric Range of Motion Knee kailash Knee ROM WFL Yes Knee ROM Limitations Comments WFL but painful PT-OP-M Strength Start: 10/04/21 08:01 Freq: Status: Active Protocol: Document 10/06/21 09:45 [facility] (Rec: 10/06/21 18:08 [facility] [id number]) Shoulder Strength Shoulder Manual Muscle Testing kailash Flexion 3+ Fair+ Extension 3+ Fair+ Abduction (C5) 3+ Fair+ Adduction 3+ Fair+ External Rotation 3+ Fair+ Internal Rotation 3+ Fair+ Comments limited by pain Elbow/Forearm Strength Elbow and Forearm Manual Muscle Testing kailash Flexion (C6) 4 Good Extension (C7) 4 Good Comments painful Hip Strength Hip Manual Muscle Testing kailash Flexion (L2) 3+ Fair+ Extension (S1) 3- Fair- Abduction 3+ Fair+ External Rotation 3+ Fair+ Internal Rotation 3+ Fair+ Comments painful Knee Strength Knee Manual Muscle Testing kailash Flexion (S2) 4 Good Extension (L3) 4 Good Comments painful PT-OP-Q Treatments Start: 10/04/21 08:01 Freq: Status: Active Protocol: Document 10/06/21 09:45 [facility] (Rec: 10/06/21 18:08 [facility] [id number]) Self-Care/Home Management Treatment Education Patient Education Home Exercise Program Other Education written HEP issued for TrA activation, gluteal sets, bridging, sit to stand PT-OP-S Aquatic Treatment Start: 10/04/21 08:01 Freq: Status: Active Protocol: Document 12/05/21 11:00 [facility] (Rec: 12/06/21 15:46 [facility] [id number]) Aquatics Treatment Other kinesiotape Details right knee Comments 2 Y strips, 1 I strip for medial meniscus; all 50-75% stretch PT-OP-T Assessment and Plan Start: 10/04/21 08:01 Freq: Status: Active Protocol: Document 12/05/21 11:00 [facility] (Rec: 12/06/21 15:46 [facility] [id number]) Physical Therapy Assessment Goals Two Impairment pain bilateral UE's and LE's with decreased functional strength Impairment patient unable to reach overhead due to bilateral shoulder pain requires use of UE's to move from sit to stand Short Term Goal (STG) Patient to report 25% reduction in pain with usual functional activities STG Duration 11/06/21 Service Desk Director Goal (LTG) Patient will be able to move from sit to stand without requiring use of hands Patient will be able to reach overhead to wash hair and reach objects in cupboards with reported 50% decrease in pain LTG Duration 12/05/21 One Impairment Not able to tolerate exercise progarm Short Term Goal (STG) instruct in progressive aquatic exericse program STG Duration 11/06/21 Alf Goal (LTG) Patient to be independent and compliant with aquatic exercise program for the purposes of assisted fitness and pain management LTG Duration 12/05/21 Assessment Summary Assessment Patient continues to have pain in her right knee due to degeneration as well as throughout her body which appears possibly due to PMR flare. Minimal to no pain while in the water and often for a few hours afterward. Will be seeing orthopedist regarding her knee soon. We worked on safety and recovery with using equipment and with increase in challenge. Trial kinesiotape right knee for support and pain management. Physical Therapy Plan Frequency and Duration Frequency of Treatment 1 visit Duration of Treatment 1 month Plan of Care Start Date 12/05/21 Plan of Care End Date 01/05/22 Therapeutic Interventions Therapeutic Interventions Aquatic Therapy,Home Exercise Program,Patient/Caregiver Education,Self-Care/Home Management Next Visit Focus/Plan Next Note Type Discharge Summary Next Visit Plan Assess response to kinesiotape and instruct patient in self- taping if indicated. Review aquatic exercise program to assure safety and independence . Anticipate discharge after 1 further PT visit.
--- NOTE | 2021-12-05 15:47 | PT.OPPOC ---
Physical, Occupational & Speech Therapy At [facility] Current Diagnoses Muscle weakness (generalized) (12/05/21) Other malaise (12/05/21) Visit Care Team Role Provider Type Soren Dickens MD Family Provider Physician Primary Care Provider Referring Provider Specialty: Family Practice Address: [address] [place] [address], [id number] Email: [email or web address] Suze Grimaldo PA-C Attending Provider Advanced Babcock Tester Specialty: Medical Address: [facility], [address] [place], [address] Email: [email or web address] Plan Of Care PT-OP-T Assessment and Plan Start: 10/04/21 08:01 Freq: Status: Active Protocol: Document 12/05/21 11:00 [facility] (Rec: 12/06/21 15:46 [facility] [id number]) Physical Therapy Assessment Goals Two Impairment pain bilateral UE's and LE's with decreased functional strength Impairment patient unable to reach overhead due to bilateral shoulder pain requires use of UE's to move from sit to stand Short Term Goal (STG) Patient to report 25% reduction in pain with usual functional activities STG Duration 11/06/21 Fpc Goal (LTG) Patient will be able to move from sit to stand without requiring use of hands Patient will be able to reach overhead to wash hair and reach objects in cupboards with reported 50% decrease in pain LTG Duration 12/05/21 One Impairment Not able to tolerate exercise progarm Short Term Goal (STG) instruct in progressive aquatic exericse program STG Duration 11/06/21 Fpc Goal (LTG) Patient to be independent and compliant with aquatic exercise program for the purposes of fpc fitness and pain management LTG Duration 12/05/21 Assessment Summary Assessment Patient continues to have pain in her right knee due to degeneration as well as throughout her body which appears possibly due to PMR flare. Minimal to no pain while in the water and often for a few hours afterward. Will be seeing orthopedist regarding her knee soon. We worked on safety and recovery with using equipment and with increase in challenge. Trial kinesiotape right knee for support and pain management. Physical Therapy Plan Frequency and Duration Frequency of Treatment 1 visit Duration of Treatment 1 month Plan of Care Start Date 12/05/21 Plan of Care End Date 01/05/22 Therapeutic Interventions Therapeutic Interventions Aquatic Therapy,Home Exercise Program,Patient/Caregiver Education,Self-Care/Home Management Next Visit Focus/Plan Next Note Type Discharge Summary Next Visit Plan Assess response to kinesiotape and instruct patient in self- taping if indicated. Review aquatic exercise program to assure safety and independence . Anticipate discharge after 1 further PT visit. Plan of Care Dates Plan of Care Start Date 12/05/21 Plan of Care End Date 01/05/22 Electronically Signed by: Sarah Nelson, PT 12/06/21 0503 If you are in agreement with this Plan of Care, please return a signed and dated copy. I have reviewed this Plan of Care and certify that the skilled therapy services above are required to meet the patient?s needs. Physician Signature Date Printed Name and Credentials Clinical Instructor Signature Printed Name and Credentials
--- NOTE | 2021-12-12 11:47 | PT.OTN ---
Current Diagnoses Muscle weakness (generalized) (12/12/21) Other malaise (12/12/21) Physical Therapy Treatment Note PT-OP-A Visit Information Start: 10/04/21 08:01 Freq: Status: Active Protocol: Document 12/12/21 11:00 [facility] (Rec: 12/13/21 11:47 [facility] [id number]) Out-Patient Physical Therapy Visit Information Visit Information Visit Type Aquatic Treatment Note Visit Start Time 11:00 Visit Stop Time 11:45 Total Visit Minutes 45 Visit Number 8 PT-OP-B Current Condition Start: 10/04/21 08:01 Freq: Status: Active Protocol: Document 10/19/21 17:31 [facility] (Rec: 10/19/21 17:37 [facility] [id number]) Current Condition History of Current Condition Onset Date 2011 Current Complaints weakness and pain History of Current Condition History of polymyalgia rheumatica, has been on/off Prednisone for 10+ years. Recent worseining bilateral shoulders and upper arms and states that is usually the beginning of a major flare up. Not a good candidate for Prednisone because of side effects doesn't want to take anymore. Sees a GP, has never seen a hydrogen power plant engineer. Prior aquatic PT for left TKA. Hasn't been able to go to the pool due to Covid and [place] in 4 story home to go through on and off for 1 year. and reports weight gain and increase in pain. 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 Has fallen a couple times feel on tailbone. right knee pain, catches Prior Treatments and Tests Prednisone Land-based PT from Ayesha Smith, PT. Dietary changes Future Testing and Treatments Planned Consider hydrogen power plant engineer PT-OP-C Subjective Start: 10/04/21 08:01 Freq: Status: Active Protocol: Document 12/12/21 11:00 [facility] (Rec: 12/13/21 11:47 [facility] [id number]) OP-PT Subjective Patient Comments Patient Comments No new c/o, modfication of ther ex inc or dec doesn't seem to make a difference in her pain. Plans to continue aquatic PT 5-6 days per week agrees to follow-up in approximately 1 month to assess progress, answer questions and progress or modify as indicated. PT-OP-G Mobility & Gait Start: 10/04/21 08:01 Freq: Status: Active Protocol: Document 10/06/21 09:45 [facility] (Rec: 10/06/21 18:08 [facility] [id number]) OP Gait Assessment Gait Gait Assistance Required: Independent Assistive Devices Assistive Device None Gait Deviations General Gait Pattern Antalgic PT-OP-K Range of Motion Start: 10/04/21 08:01 Freq: Status: Active Protocol: Document 10/06/21 09:45 [facility] (Rec: 10/06/21 18:08 [facility] [id number]) Shoulder Goniometric Range of Motion Shoulder kailash Shoulder ROM WFL Yes Shoulder ROM Limitations Shoulder ROM Limitations Pain Comments WFL but painful Hip Goniometric Range of Motion Hip kailash Testing Position Supine Flexion w/Knee Flexed 110 Straight Leg Raise 70 Extension 0 Abduction 25 Internal Rotation 10 External Rotation 45 Knee Goniometric Range of Motion Knee kailash Knee ROM WFL Yes Knee ROM Limitations Comments WFL but painful PT-OP-M Strength Start: 10/04/21 08:01 Freq: Status: Active Protocol: Document 10/06/21 09:45 [facility] (Rec: 10/06/21 18:08 [facility] [id number]) Shoulder Strength Shoulder Manual Muscle Testing kailash Flexion 3+ Fair+ Extension 3+ Fair+ Abduction (C5) 3+ Fair+ Adduction 3+ Fair+ External Rotation 3+ Fair+ Internal Rotation 3+ Fair+ Comments limited by pain Elbow/Forearm Strength Elbow and Forearm Manual Muscle Testing kailash Flexion (C6) 4 Good Extension (C7) 4 Good Comments painful Hip Strength Hip Manual Muscle Testing kailash Flexion (L2) 3+ Fair+ Extension (S1) 3- Fair- Abduction 3+ Fair+ External Rotation 3+ Fair+ Internal Rotation 3+ Fair+ Comments painful Knee Strength Knee Manual Muscle Testing kailash Flexion (S2) 4 Good Extension (L3) 4 Good Comments painful PT-OP-Q Treatments Start: 10/04/21 08:01 Freq: Status: Active Protocol: Document 10/06/21 09:45 [facility] (Rec: 10/06/21 18:08 [facility] [id number]) Self-Care/Home Management Treatment Education Patient Education Home Exercise Program Other Education written HEP issued for TrA activation, gluteal sets, bridging, sit to stand PT-OP-S Aquatic Treatment Start: 10/04/21 08:01 Freq: Status: Active Protocol: Document 12/12/21 11:00 [facility] (Rec: 12/13/21 11:47 [facility] [id number]) Aquatics Treatment Pool Entry/Exit Pool Entry/Exit Method Stairs Assistance Independent Lower Extremity Exercises squats Body Position Standing Water Level Chest Level Reps/Duration 10x Comments cues for long spine, hip hinge knee flex/ext Body Position Standing Water Level Chest Level Equipment Resistance Fins Reps/Duration 10x 4-way hip Body Position Standing Water Level Chest Level Equipment Resistance Fins Reps/Duration 10x Lower Extremity Stretches quad Equipment Small Noodle Reps/Duration 2x30 hamstrings Equipment Small Noodle Reps/Duration 2x30 [place] Activities [place] Activities Bicycle,Bicycle Backwards, Cross Country,Running,Hip Abduction/Adduction Other Activities pendulums, otter Equipment belt, BBs, resistance fins Other kinesiotape Details right knee Comments 2 Y strips, 1 I strip for medial meniscus; all 50-75% stretch PT-OP-T Assessment and Plan Start: 10/04/21 08:01 Freq: Status: Active Protocol: Document 12/12/21 11:00 [facility] (Rec: 12/13/21 11:47 [facility] [id number]) Physical Therapy Assessment Goals Two Impairment pain bilateral UE's and LE's with decreased functional strength Impairment patient unable to reach overhead due to bilateral shoulder pain requires use of UE's to move from sit to stand Short Term Goal (STG) Patient to report 25% reduction in pain with usual functional activities 12/12/21: pain persists, though decreased while in pool and for a few hours afterward Cutter Operator Brick Goal (LTG) Patient will be able to move from sit to stand without requiring use of hands Patient will be able to reach overhead to wash hair and reach objects in cupboards with reported 50% decrease in pain 12/12/21:Some improvement in strength for reaching overhead , though pain persists LTG Duration 01/31/22 One Impairment Not able to tolerate exercise progarm Short Term Goal (STG) instruct in progressive aquatic exericse program 12/12/21: goal met STG Duration goal met Cutter Operator Brick Goal (LTG) Patient to be independent and compliant with aquatic exercise program 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 LTG Duration 01/31/22 Assessment Summary Assessment Patient has obtained own ankle floats, was instructed in use last session. Instructed in use of resistance fins today with good understanding and tolerance; small on wrists and large on ankles. Independent with aquatic exercise program at this time. Recommend follow-up in 1 month to assess progress, make modifications as needed, determine need for further PT. Physical Therapy Plan Frequency and Duration Frequency of Treatment 1 visit Duration of Treatment 1 month Plan of Care Start Date 12/05/21 Plan of Care End Date 01/05/22 Therapeutic Interventions Therapeutic Interventions Aquatic Therapy,Home Exercise Program,Patient/Caregiver Education,Self-Care/Home Management Next Visit Focus/Plan Next Note Type Discharge Summary Next Visit Plan Follow-up appointment in 1 month as needed; patient to call if doesn't feel need.
--- NOTE | 2021-12-13 11:47 | PT.OTN ---
Current Diagnoses Muscle weakness (generalized) (12/12/21) Other malaise (12/12/21) Physical Therapy Treatment Note PT-OP-A Visit Information Start: 10/04/21 08:01 Freq: Status: Active Protocol: Document 12/12/21 11:00 [facility] (Rec: 12/13/21 11:47 [facility] [id number]) Out-Patient Physical Therapy Visit Information Visit Information Visit Type Aquatic Treatment Note Visit Start Time 11:00 Visit Stop Time 11:45 Total Visit Minutes 45 Visit Number 8 PT-OP-B Current Condition Start: 10/04/21 08:01 Freq: Status: Active Protocol: Document 10/19/21 17:31 [facility] (Rec: 10/19/21 17:37 [facility] [id number]) Current Condition History of Current Condition Onset Date 2011 Current Complaints weakness and pain History of Current Condition History of polymyalgia rheumatica, has been on/off Prednisone for 10+ years. Recent worseining bilateral shoulders and upper arms and states that is usually the beginning of a major flare up. Not a good candidate for Prednisone because of side effects doesn't want to take anymore. Sees a GP, has never seen a certified ski patroller. Prior aquatic PT for left TKA. Hasn't been able to go to the pool due to Covid and family [place] being out [place] in 4 story home to go through on and off for 1 year. and reports weight gain and increase in pain. 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 Has fallen a couple times feel on tailbone. right knee pain, catches Prior Treatments and Tests Prednisone Land-based PT from Ayesha Smith, PT. Dietary changes Future Testing and Treatments Planned Consider certified ski patroller PT-OP-C Subjective Start: 10/04/21 08:01 Freq: Status: Active Protocol: Document 12/12/21 11:00 [facility] (Rec: 12/13/21 11:47 [facility] [id number]) OP-PT Subjective Patient Comments Patient Comments No new c/o, modfication of ther ex inc or dec doesn't seem to make a difference in her pain. Plans to continue aquatic PT 5-6 days per week agrees to follow-up in approximately 1 month to assess progress, answer questions and progress or modify as indicated. PT-OP-G Mobility & Gait Start: 10/04/21 08:01 Freq: Status: Active Protocol: Document 10/06/21 09:45 [facility] (Rec: 10/06/21 18:08 [facility] [id number]) OP Gait Assessment Gait Gait Assistance Required: Independent Assistive Devices Assistive Device None Gait Deviations General Gait Pattern Antalgic PT-OP-K Range of Motion Start: 10/04/21 08:01 Freq: Status: Active Protocol: Document 10/06/21 09:45 [facility] (Rec: 10/06/21 18:08 [facility] [id number]) Shoulder Goniometric Range of Motion Shoulder kailash Shoulder ROM WFL Yes Shoulder ROM Limitations Shoulder ROM Limitations Pain Comments WFL but painful Hip Goniometric Range of Motion Hip kailash Testing Position Supine Flexion w/Knee Flexed 110 Straight Leg Raise 70 Extension 0 Abduction 25 Internal Rotation 10 External Rotation 45 Knee Goniometric Range of Motion Knee kailash Knee ROM WFL Yes Knee ROM Limitations Comments WFL but painful PT-OP-M Strength Start: 10/04/21 08:01 Freq: Status: Active Protocol: Document 10/06/21 09:45 [facility] (Rec: 10/06/21 18:08 [facility] [id number]) Shoulder Strength Shoulder Manual Muscle Testing kailash Flexion 3+ Fair+ Extension 3+ Fair+ Abduction (C5) 3+ Fair+ Adduction 3+ Fair+ External Rotation 3+ Fair+ Internal Rotation 3+ Fair+ Comments limited by pain Elbow/Forearm Strength Elbow and Forearm Manual Muscle Testing kailash Flexion (C6) 4 Good Extension (C7) 4 Good Comments painful Hip Strength Hip Manual Muscle Testing kailash Flexion (L2) 3+ Fair+ Extension (S1) 3- Fair- Abduction 3+ Fair+ External Rotation 3+ Fair+ Internal Rotation 3+ Fair+ Comments painful Knee Strength Knee Manual Muscle Testing kailash Flexion (S2) 4 Good Extension (L3) 4 Good Comments painful PT-OP-Q Treatments Start: 10/04/21 08:01 Freq: Status: Active Protocol: Document 10/06/21 09:45 [facility] (Rec: 10/06/21 18:08 [facility] [id number]) Self-Care/Home Management Treatment Education Patient Education Home Exercise Program Other Education written HEP issued for TrA activation, gluteal sets, bridging, sit to stand PT-OP-S Aquatic Treatment Start: 10/04/21 08:01 Freq: Status: Active Protocol: Document 12/12/21 11:00 [facility] (Rec: 12/13/21 11:47 [facility] [id number]) Aquatics Treatment Pool Entry/Exit Pool Entry/Exit Method Stairs Assistance Independent Lower Extremity Exercises squats Body Position Standing Water Level Chest Level Reps/Duration 10x Comments cues for long spine, hip hinge knee flex/ext Body Position Standing Water Level Chest Level Equipment Resistance Fins Reps/Duration 10x 4-way hip Body Position Standing Water Level Chest Level Equipment Resistance Fins Reps/Duration 10x Lower Extremity Stretches quad Equipment Small Noodle Reps/Duration 2x30 hamstrings Equipment Small Noodle Reps/Duration 2x30 [place] Activities [place] Activities Bicycle,Bicycle Backwards, Cross Country,Running,Hip Abduction/Adduction Other Activities pendulums, otter Equipment belt, BBs, resistance fins Other kinesiotape Details right knee Comments 2 Y strips, 1 I strip for medial meniscus; all 50-75% stretch PT-OP-T Assessment and Plan Start: 10/04/21 08:01 Freq: Status: Active Protocol: Document 12/12/21 11:00 [facility] (Rec: 12/13/21 11:47 [facility] [id number]) Physical Therapy Assessment Goals Two Impairment pain bilateral UE's and LE's with decreased functional strength Impairment patient unable to reach overhead due to bilateral shoulder pain requires use of UE's to move from sit to stand Short Term Goal (STG) Patient to report 25% reduction in pain with usual functional activities 12/12/21: pain persists, though decreased while in pool and for a few hours afterward Roller Inspector Goal (LTG) Patient will be able to move from sit to stand without requiring use of hands Patient will be able to reach overhead to wash hair and reach objects in cupboards with reported 50% decrease in pain 12/12/21:Some improvement in strength for reaching overhead , though pain persists LTG Duration 01/31/22 One Impairment Not able to tolerate exercise progarm Short Term Goal (STG) instruct in progressive aquatic exericse program 12/12/21: goal met STG Duration goal met Roller Inspector Goal (LTG) Patient to be independent and compliant with aquatic exercise program for the purposes of buttermaker continuous churn fitness and pain management 12/12/21: patient independent with current program after today's visit, recommend follow-up visit in 1 month to determine need for any further PT, modify and progress aquatic exercise program as tolerated. LTG Duration 01/31/22 Assessment Summary Assessment Patient has obtained own ankle floats, was instructed in use last session. Instructed in use of resistance fins today with good understanding and tolerance; small on wrists and large on ankles. Independent with aquatic exercise program at this time. Recommend follow-up in 1 month to assess progress, make modifications as needed, determine need for further PT. Physical Therapy Plan Frequency and Duration Frequency of Treatment 1 visit Duration of Treatment 1 month Plan of Care Start Date 12/05/21 Plan of Care End Date 01/05/22 Therapeutic Interventions Therapeutic Interventions Aquatic Therapy,Home Exercise Program,Patient/Caregiver Education,Self-Care/Home Management Next Visit Focus/Plan Next Note Type Discharge Summary Next Visit Plan Follow-up appointment in 1 month as needed; patient to call if doesn't feel need.
--- NOTE | 2022-02-15 13:16 | PT.OPDS ---
Current Diagnoses Muscle weakness (generalized) (12/12/21) Other malaise (12/12/21) Visit Care Team Role Provider Type Soren Dickens MD Family Provider Physician Primary Care Provider Referring Provider Specialty: Family Practice Address: [facility] [place], [address] Email: [email or web address] Suze Grimaldo PA-C Attending Provider Advanced Slat Twister Specialty: Medical Address: [address], [address] Email: [email or web address] Visit Number Visit Number 8 Discharge Summary PT-OP-B Current Condition Start: 10/04/21 08:01 Freq: Status: Active Protocol: Document 10/19/21 17:31 [facility] (Rec: 10/19/21 17:37 [facility] [id number]) Current Condition History of Current Condition Onset Date 2011 Current Complaints weakness and pain History of Current Condition History of polymyalgia rheumatica, has been on/off Prednisone for 10+ years. Recent worseining bilateral shoulders and upper arms and states that is usually the beginning of a major flare up. Not a good candidate for Prednisone because of side effects doesn't want to take anymore. Sees a GP, has never seen a wildland fire fighter. Prior aquatic PT for left TKA. Hasn't been able to go to the pool due to Covid and family with being out east in 4 story home to go through on and off for 1 year. and reports weight gain and increase in pain. 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 Has fallen a couple times feel on tailbone. right knee pain, catches Prior Treatments and Tests Prednisone Land-based PT from Ayesha Smith, PT. Dietary changes Future Testing and Treatments Planned Consider wildland fire fighter PT-OP-C Subjective Start: 10/04/21 08:01 Freq: Status: Active Protocol: Document 12/12/21 11:00 [facility] (Rec: 12/13/21 11:47 [facility] [id number]) OP-PT Subjective Patient Comments Patient Comments No new c/o, modfication of ther ex inc or dec doesn't seem to make a difference in her pain. Plans to continue aquatic PT 5-6 days per week agrees to follow-up in approximately 1 month to assess progress, answer questions and progress or modify as indicated. PT-OP-G Mobility & Gait Start: 10/04/21 08:01 Freq: Status: Active Protocol: Document 10/06/21 09:45 [facility] (Rec: 10/06/21 18:08 [facility] [id number]) OP Gait Assessment Gait Gait Assistance Required: Independent Assistive Devices Assistive Device None Gait Deviations General Gait Pattern Antalgic PT-OP-K Range of Motion Start: 10/04/21 08:01 Freq: Status: Active Protocol: Document 10/06/21 09:45 [facility] (Rec: 10/06/21 18:08 [facility] [id number]) Shoulder Goniometric Range of Motion Shoulder kailash Shoulder ROM WFL Yes Shoulder ROM Limitations Shoulder ROM Limitations Pain Comments WFL but painful Hip Goniometric Range of Motion Hip kailash Testing Position Supine Flexion w/Knee Flexed 110 Straight Leg Raise 70 Extension 0 Abduction 25 Internal Rotation 10 External Rotation 45 Knee Goniometric Range of Motion Knee kailash Knee ROM WFL Yes Knee ROM Limitations Comments WFL but painful PT-OP-M Strength Start: 10/04/21 08:01 Freq: Status: Active Protocol: Document 10/06/21 09:45 [facility] (Rec: 10/06/21 18:08 [facility] [id number]) Shoulder Strength Shoulder Manual Muscle Testing kailash Flexion 3+ Fair+ Extension 3+ Fair+ Abduction (C5) 3+ Fair+ Adduction 3+ Fair+ External Rotation 3+ Fair+ Internal Rotation 3+ Fair+ Comments limited by pain Elbow/Forearm Strength Elbow and Forearm Manual Muscle Testing kailash Flexion (C6) 4 Good Extension (C7) 4 Good Comments painful Hip Strength Hip Manual Muscle Testing kailash Flexion (L2) 3+ Fair+ Extension (S1) 3- Fair- Abduction 3+ Fair+ External Rotation 3+ Fair+ Internal Rotation 3+ Fair+ Comments painful Knee Strength Knee Manual Muscle Testing kailash Flexion (S2) 4 Good Extension (L3) 4 Good Comments painful PT-OP-T Assessment and Plan Start: 10/04/21 08:01 Freq: Status: Active Protocol: Document 12/12/21 11:00 [facility] (Rec: 12/13/21 11:47 [facility] [id number]) Physical Therapy Assessment Goals Two Impairment pain bilateral UE's and LE's with decreased functional strength Impairment patient unable to reach overhead due to bilateral shoulder pain requires use of UE's to move from sit to stand Short Term Goal (STG) Patient to report 25% reduction in pain with usual functional activities 12/12/21: pain persists, though decreased while in pool and for a few hours afterward Laundry Folder Goal (LTG) Patient will be able to move from sit to stand without requiring use of hands Patient will be able to reach overhead to wash hair and reach objects in cupboards with reported 50% decrease in pain 12/12/21:Some improvement in strength for reaching overhead , though pain persists LTG Duration 01/31/22 One Impairment Not able to tolerate exercise progarm Short Term Goal (STG) instruct in progressive aquatic exericse program 12/12/21: goal met STG Duration goal met Senior Living Goal (LTG) Patient to be independent and compliant with aquatic exercise program for the purposes of longwall shearer operator fitness and pain management 12/12/21: patient independent with current program after today's visit, recommend follow-up visit in 1 month to determine need for any further PT, modify and progress aquatic exercise program as tolerated. LTG Duration 01/31/22 Assessment Summary Assessment Patient has obtained own ankle floats, was instructed in use last session. Instructed in use of resistance fins today with good understanding and tolerance; small on wrists and large on ankles. Independent with aquatic exercise program at this time. Recommend follow-up in 1 month to assess progress, make modifications as needed, determine need for further PT. Physical Therapy Plan Frequency and Duration Frequency of Treatment 1 visit Duration of Treatment 1 month Plan of Care Start Date 12/05/21 Plan of Care End Date 01/05/22 Therapeutic Interventions Therapeutic Interventions Aquatic Therapy,Home Exercise Program,Patient/Caregiver Education,Self-Care/Home Management Next Visit Focus/Plan Next Note Type Discharge Summary Next Visit Plan Follow-up appointment in 1 month as needed; patient to call if doesn't feel need.
--- NOTE | 2022-02-15 13:16 | PT.OTN ---
Current Diagnoses Muscle weakness (generalized) (12/12/21) Other malaise (12/12/21) Physical Therapy Treatment Note PT-OP-A Visit Information Start: 10/04/21 08:01 Freq: Status: Active Protocol: Document 02/15/22 13:15 [facility] (Rec: 02/15/22 13:16 [facility] [id number]) Out-Patient Physical Therapy Visit Information Visit Information Visit Type Discharge Summary Visit Note Patient was to come for 1 month follow-up or call to cancel. Has not come for any further appointments and will be discharged form PT at this time. She was indepdent in HEP and aquatic ex program. PT-OP-B Current Condition Start: 10/04/21 08:01 Freq: Status: Active Protocol: Document 10/19/21 17:31 [facility] (Rec: 10/19/21 17:37 [facility] [id number]) Current Condition History of Current Condition Onset Date 2011 Current Complaints weakness and pain History of Current Condition History of polymyalgia rheumatica, has been on/off Prednisone for 10+ years. Recent worseining bilateral shoulders and upper arms and states that is usually the beginning of a major flare up. Not a good candidate for Prednisone because of side effects doesn't want to take anymore. Sees a GP, has never seen a wrinkle chaser. Prior aquatic PT for left TKA. Hasn't been able to go to the pool due to Covid and [place] 4 story home to go through on and off for 1 year. and reports weight gain and increase in pain. 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 Has fallen a couple times feel on tailbone. right knee pain, catches Prior Treatments and Tests Prednisone Land-based PT [facility]. Dietary changes Future Testing and Treatments Planned Consider wrinkle chaser PT-OP-C Subjective Start: 10/04/21 08:01 Freq: Status: Active Protocol: Document 12/12/21 11:00 [facility] (Rec: 12/13/21 11:47 [facility] [id number]) OP-PT Subjective Patient Comments Patient Comments No new c/o, modfication of ther ex inc or dec doesn't seem to make a difference in her pain. Plans to continue aquatic PT 5-6 days per week agrees to follow-up in approximately 1 month to assess progress, answer questions and progress or modify as indicated. PT-OP-G Mobility & Gait Start: 10/04/21 08:01 Freq: Status: Active Protocol: Document 10/06/21 09:45 [facility] (Rec: 10/06/21 18:08 [facility] [id number]) OP Gait Assessment Gait Gait Assistance Required: Independent Assistive Devices Assistive Device None Gait Deviations General Gait Pattern Antalgic PT-OP-K Range of Motion Start: 10/04/21 08:01 Freq: Status: Active Protocol: Document 10/06/21 09:45 [facility] (Rec: 10/06/21 18:08 [facility] [id number]) Shoulder Goniometric Range of Motion Shoulder kailash Shoulder ROM WFL Yes Shoulder ROM Limitations Shoulder ROM Limitations Pain Comments WFL but painful Hip Goniometric Range of Motion Hip kailash Testing Position Supine Flexion w/Knee Flexed 110 Straight Leg Raise 70 Extension 0 Abduction 25 Internal Rotation 10 External Rotation 45 Knee Goniometric Range of Motion Knee kailash Knee ROM WFL Yes Knee ROM Limitations Comments WFL but painful PT-OP-M Strength Start: 10/04/21 08:01 Freq: Status: Active Protocol: Document 10/06/21 09:45 [facility] (Rec: 10/06/21 18:08 [facility] [id number]) Shoulder Strength Shoulder Manual Muscle Testing kailash Flexion 3+ Fair+ Extension 3+ Fair+ Abduction (C5) 3+ Fair+ Adduction 3+ Fair+ External Rotation 3+ Fair+ Internal Rotation 3+ Fair+ Comments limited by pain Elbow/Forearm Strength Elbow and Forearm Manual Muscle Testing kailash Flexion (C6) 4 Good Extension (C7) 4 Good Comments painful Hip Strength Hip Manual Muscle Testing kailash Flexion (L2) 3+ Fair+ Extension (S1) 3- Fair- Abduction 3+ Fair+ External Rotation 3+ Fair+ Internal Rotation 3+ Fair+ Comments painful Knee Strength Knee Manual Muscle Testing kailash Flexion (S2) 4 Good Extension (L3) 4 Good Comments painful PT-OP-Q Treatments Start: 10/04/21 08:01 Freq: Status: Active Protocol: Document 10/06/21 09:45 [facility] (Rec: 10/06/21 18:08 [facility] [id number]) Self-Care/Home Management Treatment Education Patient Education Home Exercise Program Other Education written HEP issued for TrA activation, gluteal sets, bridging, sit to stand PT-OP-S Aquatic Treatment Start: 10/04/21 08:01 Freq: Status: Active Protocol: Document 12/12/21 11:00 [facility] (Rec: 12/13/21 11:47 [facility] [id number]) Aquatics Treatment Pool Entry/Exit Pool Entry/Exit Method Stairs Assistance Independent Lower Extremity Exercises squats Body Position Standing Water Level Chest Level Reps/Duration 10x Comments cues for long spine, hip hinge knee flex/ext Body Position Standing Water Level Chest Level Equipment Resistance Fins Reps/Duration 10x 4-way hip Body Position Standing Water Level Chest Level Equipment Resistance Fins Reps/Duration 10x Lower Extremity Stretches quad Equipment Small Noodle Reps/Duration 2x30 hamstrings Equipment Small Noodle Reps/Duration 2x30 [place] Activities [place] Activities Bicycle,Bicycle Backwards, Cross Country,Running,Hip Abduction/Adduction Other Activities pendulums, otter Equipment belt, BBs, resistance fins Other kinesiotape Details right knee Comments 2 Y strips, 1 I strip for medial meniscus; all 50-75% stretch PT-OP-T Assessment and Plan Start: 10/04/21 08:01 Freq: Status: Active Protocol: Document 02/15/22 13:15 [facility] (Rec: 02/15/22 13:16 [facility] [id number]) Physical Therapy Plan Discharge Physical Therapy Discharge Reasons Plateau in Progress Discharge Comments Patient request [id number]
== END 2022-02-16 12:16 | disposition home or self-care (01) ==
LOC: PHYS 11:00
PROVIDERS: Family Provider Family Medicine; PCP Family Medicine; Referring Provider Family Medicine; Visit Provider Physician Assistant
DX: R53.81 Other malaise (principal); M62.81 Muscle weakness (generalized)
CPT/HCPCS: 97113; 97162; 97535

== ENCOUNTER → 2022-07-12 10:56 | Outpatient (CLI) | payer OTHER, SELFPAY ==
[2022-07-12 11:50] LABS: Erythrocyte Sedimentation Rate 42 MM/HR (0-20)
[2022-07-12 12:10] LABS: BUN Creatinine Ratio 20.3 (6-22); Blood Urea Nitrogen 13 mg/dL (7-17); C-Reactive Protein Quant 0.9 mg/dL (<1.0); Calcium 9.1 mg/dL (8.4-10.2); Carbon Dioxide 27 mmol/L (22-32); Chloride 99 mmol/L (98-107); Estimated Glomerular Filt Rate > 60 mL/min (>60); Glucose 94 mg/dL (80-110); HEMOLYSIS < 15 (0-50); Potassium 4.2 mmol/L (3.4-5.1); Sodium 138 mmol/L (137-145)
[2022-07-12 14:05] LABS: TSH w/ Reflex to FT4 4.11 uIU/mL (0.47-4.68)
== END ==
PROVIDERS: Family Provider Family Medicine; PCP Family Medicine; Referring Provider Physician Assistant; Visit Provider Physician Assistant
DX: M35.3 Polymyalgia rheumatica (principal); R79.89 Other specified abnormal findings of blood chemistry
CPT/HCPCS: 36415; 80048; 84443; 85651; 86140

== ENCOUNTER → 2022-07-18 14:30 | Outpatient (CLI) | payer OTHER, SELFPAY ==
--- NOTE | 2022-07-18 14:31 | DI.RAD.S_ITS ---
PROCEDURE: XR KNEE RT 3V INDICATIONS: Right knee pain; swelling TECHNIQUE: Three views of the right knee, one view of the left knee COMPARISON: None. FINDINGS: Bones: Moderate to severe arthrosis, particularly in the lateral compartment. No displaced fracture or dislocation. Soft tissues: Moderate joint effusion. Patellar enthesopathy. Partially visualized left knee with arthroplasty hardware and possible fibular head/neck deformity. IMPRESSION: Moderate to severe right knee degenerative changes, particularly involving the lateral compartment. Joint effusion is present. Dictated by: Thony Gonzalez M.D. on 07/19/2022 at 10:53 Approved by: Thony Gonzalez M.D. on 07/19/2022 at 10:55
== END ==
PROVIDERS: Family Provider Family Medicine; PCP Family Medicine; Referring Provider Physician Assistant; Visit Provider Physician Assistant
DX: M25.561 Pain in right knee (principal); M25.461 Effusion, right knee; Z96.651 Presence of right artificial knee joint
CPT/HCPCS: 73562

== ENCOUNTER → 2022-07-19 09:58 | Outpatient (CLI) | payer OTHER, SELFPAY ==
[2022-07-19 11:09] LABS: Appearance Urine UA CLEAR; Bilirubin Urine UA NEGATIVE (NEGATIVE); Color Urine UA YELLOW; Glucose Urine UA NEGATIVE (Negative); Ketones Urine UA NEGATIVE (NEGATIVE); Leukocyte Esterase Urine UA TRACE (NEGATIVE); Nitrite Urine UA NEGATIVE (Negative); Occult Blood Urine UA NEGATIVE (Negative); Protein Urine UA NEGATIVE (Negative); Urobilinogen Urine UA 0.2 E.U./dL (0.2)
[2022-07-19 11:17] LABS: Bacteria Urine None Seen; Culture Indicated Urine Specimen Cultured; RBC Urine None Seen (0-5/HPF); WBC Urine None Seen (0-5/HPF)
[2022-07-19 11:19] LABS: Add Manual Diff / Slide Review NO; Basophils Absolute Auto 100 /uL (0-100); Basophils Percent Auto 1.2 % (0-2); Eosinophils Absolute Auto 100 /uL (0-450); Eosinophils Percent Auto 1.3 % (2-4); Hematocrit 38.9 % (36-46); Hemoglobin 12.9 g/dL (12.0-16.0); Lymphocytes Absolute Auto 1600 /uL (1100-4500); Lymphocytes Percent Auto 25.1 % (25-40); Mean Corpuscular HGB Conc 33.1 % (30-36); Mean Corpuscular Hemoglobin 29.5 PG (26-34); Mean Corpuscular Volume 89.2 fL (80-100); Monocytes Absolute Auto 400 /uL (0-900); Monocytes Percent Auto 6.7 % (3-14); Neutrophils Absolute Auto 4200 /uL (1500-7000); Neutrophils Percent Auto 65.7 % (50-75); Platelet Count 296 X10^3/uL (150-400); Red Blood Cell Count 4.36 X10^6/uL (4.0-5.2); Red Cell Distribution Width 14.3 % (11.6-14.8); White Blood Cell Count 6.4 X10^3/uL (4.5-11.0)
[2022-07-19 11:54] LABS: Alanine Aminotransferase 17 IU/L (<35); Albumin Globulin Ratio 1.3 (1.0-2.8); Alkaline Phosphatase 83 U/L (38-126); Aspartate Aminotransferase 20 IU/L (14-36); BUN Creatinine Ratio 23.8 (6-22); Bilirubin Total 0.3 mg/dL (0.2-1.3); Blood Urea Nitrogen 15 mg/dL (7-17); Calcium 9.1 mg/dL (8.4-10.2); Carbon Dioxide 27 mmol/L (22-32); Chloride 102 mmol/L (98-107); Cholesterol 204 mg/dL (140-199); Estimated Glomerular Filt Rate > 60 mL/min (>60); Globulin 3.2 g/dL (1.7-4.1); Glucose 93 mg/dL (80-110); HDL Cholesterol 61 mg/dL (40-60); HEMOLYSIS < 15 (0-50); LDL Cholesterol Calculated 122 mg/dL (<100); Potassium 4.9 mmol/L (3.4-5.1); Sodium 138 mmol/L (137-145); Total Protein 7.2 g/dL (6.3-8.2); Triglycerides 103 mg/dL (35-150)
== END ==
PROVIDERS: Family Provider Family Medicine; PCP Family Medicine; Referring Provider Physician Assistant; Visit Provider Physician Assistant
DX: M79.18 Myalgia, other site (principal); R23.1 Pallor; R70.0 Elevated erythrocyte sedimentation rate
CPT/HCPCS: 36415; 80053; 80061; 81001; 85025; 87086

== ENCOUNTER → 2022-08-09 12:46 | Outpatient (CLI) | payer OTHER, SELFPAY ==
[2022-08-09 13:48] LABS: Erythrocyte Sedimentation Rate 22 MM/HR (0-20)
[2022-08-09 15:03] LABS: C-Reactive Protein Quant 1.1 mg/dL (<1.0)
[2022-08-09 15:06] LABS: Rheumatoid Factor < 8.6 IU/mL (<12.0)
[2022-08-12 17:46] LABS: ANA Screen, IFA Negative (.)
[2022-08-13 17:35] LABS: CCP Antibodies IgG/IgA 3 units (0-19)
== END ==
PROVIDERS: Family Provider Family Medicine; PCP Family Medicine; Referring Provider Internal Medicine Rheumatology; Visit Provider Internal Medicine Rheumatology
DX: M25.50 Pain in unspecified joint (principal)
CPT/HCPCS: 36415; 85651; 86038; 86140; 86200; 86430

== ENCOUNTER → 2022-12-04 09:50 | Outpatient (CLI) | payer OTHER, SELFPAY ==
--- NOTE | 2022-12-04 09:52 | DI.RAD.S_ITS ---
PROCEDURE: XR DEXA AXIAL SKELETON INDICATIONS: bone density scan COMPARISON: [facility], CR, DEXA AXIAL SKELETON, 07/31/2011, 15:20. FINDINGS: This blank DEXA report has been sent in error by the PACS system. The correct and complete report will be forthcoming in 1-2 days. Thank you for your patience and understanding. Dictated by: Sandeep Wheatley M.D. on 12/04/2022 at 10:19 Approved by: Sandeep Wheatley M.D. on 12/04/2022 at 10:19
--- NOTE | 2022-12-04 10:04 | DI.DEXA.S_ITS ---
Bone Density Report Name: ELEAZAR KEITH Age: 62 Sex: Female Ethnicity: White Date of : 1960 Indication: postmenopausal; screening for osteoporosis; history of glucocorticoids; Referring Provider: ROVERTO HIGHTOWER Study: Bone densitometry was performed. Exam Date: December 04, 2022 Accession number: [id number] Bone Density: Region BMD T-score Z-score Classification AP Spine(L1-L4) 1.002 -0.4 1.3 Normal Femoral Neck (Left) 0.652 -1.8 -0.3 Osteopenia Total Hip (Left) 0.831 -0.9 0.3 Normal Femoral Neck (Right) 0.653 -1.8 -0.3 Osteopenia Total Hip (Right) 0.800 -1.2 0.1 Osteopenia Total Hip Mean 0.816 -1.1 0.2 Osteopenia World Health Organization criteria for BMD impression classify patients as: Normal (T-score at or above -1.0), Osteopenia (T-score between -1.0 and -2.5), or Osteoporosis (T-score at or below -2.5). 10-year Fracture Risk(1): Major Osteoporotic Fracture 14% Hip Fracture 2.0% Reported Risk Factors: [place] (), Neck BMD=0.652, BMI=32.2, glucocorticoids (1) FRAX(R) Version 3.08. Fracture probability calculated for an untreated patient. Fracture probability may be lower if the patient has received treatment. Previous Exams: -- Region Exam Age BMD T-score BMD Change BMD Change Date g/cm2 vs Baseline vs Previous -- AP Spine (L1-L4) 12/04/2022 62 1.002 -0.4 -0.076 (-7.1%)# -0.076 (-7.1%)# 07/31/2011 51 1.079 0.3 Total Hip(Left) 12/04/2022 62 0.831 -0.9 -0.022 (-2.5%)# -0.022 (-2.5%)# 07/31/2011 51 0.853 -0.7 Total Hip(Right) 12/04/2022 62 0.800 -1.2 -0.149 (-15.7%)# -0.149 (-15.7%)# 07/31/2011 51 0.949 0.1 -- *Denotes significance at 95% confidence level, LSC for AP Spine = 0.022 g/cm2, LSC for Total Hip = 0.027 g/cm2 # Denotes dissimilar scan types or analysis methods Impression: The patient has low bone mass, based on the Left Femoral Neck T-score. The patient has an estimated ten-year risk of hip fracture of 2% and an estimated ten-year risk of major fracture of 14%, based on the WHO FRAX algorithm. The patient has risk factors, including: history of glucocorticoid therapy. No significant bone loss was observed. Discussion: BONE DENSITY IS LOW AT ONE OR MORE SKELETAL SITES. This patient's lowest T-score is low at one or more skeletal sites. It meets the World Health Organization's (WHO) criteria for ?low bone mass? (T-score between -1.0 and -2.5). The patient's 10-year risk of fracture as calculated by FRAX is less than the threshold where pharmacological therapy is recommended by the National Osteoporosis Foundation (NOF). However, all treatment decisions require clinical judgment and consideration of individual patient factors, including patient preferences, comorbidities, previous drug use, risk factors not captured in the FRAX model (e.g., frailty, falls, vitamin D deficiency, increased bone turnover, interval significant decline in bone density) and possible under or overestimation of fracture risk by FRAX. The patient should follow a healthful lifestyle (good nutrition with adequate calcium and vitamin D, and appropriate weight-bearing exercise). Follow-Up: Consider repeating this study in 2 to 3 years to reassess this patient's status, or sooner if there is some new clinical indication. Reported by: ASHLEIGH PEÑA M.D. on 12/04/2022 10:13:00 AM.
== END ==
PROVIDERS: Family Provider Family Medicine; PCP Family Medicine; Referring Provider Family Medicine; Visit Provider Family Medicine
DX: M85.852 Other specified disorders of bone density and structure, left thigh; Z13.820 Encounter for screening for osteoporosis; Z78.0 Asymptomatic menopausal state; Z92.241 Personal history of systemic steroid therapy
CPT/HCPCS: 77080

== ENCOUNTER → 2025-04-02 10:11 | Outpatient (CLI) | payer OTHER, SELFPAY ==
[2025-04-02 11:34] LABS: Add Manual Diff / Slide Review NO; Hematocrit 42.0 % (36-46); Hemoglobin 14.5 g/dL (12.0-16.0); Lymphocytes Absolute Auto 1800 /uL (1100-4500); Mean Corpuscular HGB Conc 34.5 % (30-36); Mean Corpuscular Hemoglobin 30.7 PG (26-34); Mean Corpuscular Volume 89.2 fL (80-100); Platelet Count 267 X10^3/uL (150-400)
[2025-04-02 11:39] LABS: Hemoglobin A1C% w Est Avg Glu 5.8 % (4.0-6.0)
[2025-04-02 11:51] LABS: Alanine Aminotransferase 17 IU/L (<35); Albumin 4.3 g/dL (3.5-5.0); Albumin Globulin Ratio 1.4 (1.0-2.8); Alkaline Phosphatase 85 U/L (38-126); Blood Urea Nitrogen 16 mg/dL (7-17); Calcium 9.4 mg/dL (8.4-10.2); Carbon Dioxide 23 mmol/L (22-32); Chloride 103 mmol/L (98-107); Cholesterol 207 mg/dL (140-199); Estimated Glomerular Filt Rate > 60 mL/min (>60); Globulin 3.1 g/dL (1.7-4.1); Glucose 88 mg/dL (70-99); HDL Cholesterol 59 mg/dL (40-60); HEMOLYSIS < 15 (0-50); Potassium 4.5 mmol/L (3.4-5.1); Sodium 137 mmol/L (137-145); Total Protein 7.4 g/dL (6.3-8.2); Triglycerides 103 mg/dL (35-150)
[2025-04-02 12:19] LABS: TSH w/ Reflex to FT4 3.53 uIU/mL (0.47-4.68)
== END ==
PROVIDERS: Family Provider Family Medicine; PCP Family Medicine; Referring Provider Physician Assistant; Visit Provider Physician Assistant
DX: Z11.59 Encounter for screening for other viral diseases (principal); M06.9 Rheumatoid arthritis, unspecified; R79.89 Other specified abnormal findings of blood chemistry; E78.5 Hyperlipidemia, unspecified; R23.1 Pallor; Z83.3 Family history of diabetes mellitus
CPT/HCPCS: 36415; 80053; 80061; 83036; 84443; 85025; 85651; 86140; 87522